=== PATIENT | female | born 1940 | race Caucasian/White ===

== ENCOUNTER 2018-10-19 10:10 | Outpatient (RCR) | payer MEDICARE, SELFPAY ==
[2018-10-19 10:46] VITALS: BP 136/67; PULSE 56; RESP 18; TEMP 36.6; BMI 22.3
--- NOTE | 2018-10-19 12:00 | HP.PCM_ITS ---
(1) Ulcer of foot Status: Chronic Current Visit: Yes Qualifiers: Laterality: right Code(s): L97.509 - Non-pressure chronic ulcer of other part of unspecified foot with unspecified severity (2) Hypertension Status: Chronic Current Visit: No Code(s): I10 - Essential (primary) hypertension (3) COPD (chronic obstructive pulmonary disease) Status: Chronic Current Visit: No Code(s): J44.9 - Chronic obstructive pulmonary disease, unspecified (4) Coronary atherosclerosis Status: Chronic Current Visit: Yes Code(s): I25.10 - Atherosclerotic heart disease of [place] coronary artery without angina pectoris (5) Cardiac arrhythmia Status: Chronic Current Visit: Yes Code(s): I49.9 - Cardiac arrhythmia, unspecified (6) GERD (gastroesophageal reflux disease) Status: Chronic Current Visit: No Code(s): K21.9 - Gastro-esophageal reflux disease without esophagitis (7) IBS (irritable bowel syndrome) Status: Chronic Current Visit: No Code(s): K58.9 - Irritable bowel syndrome without diarrhea (8) Osteoarthritis Status: Chronic Current Visit: No Code(s): M19.90 - Unspecified osteoarthritis, unspecified site (9) Pain in right leg Status: Chronic Current Visit: Yes Code(s): M79.604 - Pain in right leg (10) Neuropathy Status: Chronic Current Visit: No Code(s): G62.9 - Polyneuropathy, unspecified (11) Tobacco abuse Status: Chronic Current Visit: Yes Code(s): Z72.0 - Tobacco use (12) Tobacco abuse counseling Status: Chronic Current Visit: Yes Code(s): Z71.6 - Tobacco abuse counseling (13) Hyperlipidemia Status: Chronic Current Visit: Yes Code(s): E78.5 - Hyperlipidemia, unspecified History of Present Illness Date of Service: 10/19/18 Chief Complaint: Ulceration of the right lateral foot History of Wound: This is a 78-year-old female who presents with an ulceration of the right lateral foot. It has been present for approximately 3 to 4 weeks. Its cause is uncertain. She has been treated by her primary care physician, Dr. Paulson, in [place], [place]. The patient was initially treated with an antibiotic, the name of which is uncertain. She was subsequently switched to Cipro, which she is currently taking orally. She was also placed on Valtrex, as there was suspicion that her presenting symptoms may have been related to shingles. Patient relates that she initially noted some hard, firm painful areas on her right leg. She subsequently developed the ulceration on her right lateral foot, which occurred spontaneously, the patient denying any trauma to the area. This has been associated with purplish discoloration on the right lateral foot and involving the right fifth digit. There are also some small sc attered areas of purplish discoloration involving the right leg. The patient denies a history of thrombophlebitis. She has no history of swelling in her lower extremities. She claims to be active and ambulatory. She sleeps on a flat surface at night. A venous duplex examination has recently been performed at [facility], which was negative for deep vein thrombosis. A noninvasive arterial study was also reportedly performed, though the results are unknown. The patient is known to be a smoker. She smokes approximately 1 pack of cigarettes per day, and has done so for many years. She also has multiple medical problems, which include cardiac arrhythmia, coronary atherosclerosis, hypertension, chronic obstructive pulmonary disease, and hyperlipidemia. With respect to the ulceration on the right lateral foot, she has been using antibiotic cream topically. Past Medical History Past Medical History: Chronic Problems Ulcer of foot (Chronic) Hypertension (Chronic) COPD (chronic obstructive pulmonary disease) (Chronic) Coronary atherosclerosis (Chronic) Cardiac arrhythmia (Chronic) GERD (gastroesophageal reflux disease) (Chronic) IBS (irritable bowel syndrome) (Chronic) Osteoarthritis (Chronic) Pain in right leg (Chronic) Neuropathy (Chronic) Tobacco abuse (Chronic) Tobacco abuse counseling (Chronic) Hyperlipidemia (Chronic) Past Medical History: Patient has a history of hypertension, chronic obstructive pulmonary disease, coronary atherosclerosis, cardiac arrhythmia, gastroesophageal reflux disease, irritable bowel syndrome, osteoarthritis, and hyperlipidemia. Patient's history is negative for myocardial infarction, congestive heart failure, diabetes mellitus, cerebrovascular accident, and thyroid disease. The patient also has a history of tobacco use. The patient's medications include amlodipine 5 mg p.o. daily, chlorothiazide 5 mg p.o. twice daily, Citracal with calcium and vitamin D daily, estradiol 0.5 mg daily, metoprolol 50 mg daily, multivitamin daily, nabumetone 500 mg twice daily, oxybutynin 5 mg daily Cipro 500 mg twice daily, Zantac 150 mg twice daily. Surgical History: hysterectomy - With bilateral salpingo-oophorectomy Allergies/Adverse Reactions: Allergies No Known Allergies Allergy (Verified 10/19/18 11:36) - Family History Paternal - - Patient's father at the age of 62 with a history of melanoma. Patient's mother at the age of 42 with Hodgkin's disease Lives: Alone Smoking Status: Current every day smoker Tobacco Use: Cigarettes - 1 pack/day Alcohol: None Drugs: None Review of Systems Constitutional: Denies: Chills, Fever, Weight Change Eyes: Denies: Pain, Vision Change HEENT: Denies: Difficulty Hearing, Difficulty Swallowing, Sinus Congestion Cardiovascular: Denies: Chest Pain, Palpitations Respiratory: Denies: Cough, Shortness of Breath Gastrointestinal: Denies: Diarrhea, Nausea, Vomiting Genitourinary: Denies: Dysuria, Hematuria Endocrine: Denies: Heat/ Cold Intolerance, Polydipsia, Polyuria Hematologic/ Lymphatic: Denies: Easy Bruising, Easy Bleeding - Physical Exam Vital Signs Temp Pulse Resp BP 98 F 56 L 18 136/67 H 10/19/18 10:46 10/19/18 10:46 10/19/18 10:46 10/19/18 10:46 General: Alert, Oriented x3, Cooperative, No apparent distress, Well developed, Well nourished HEENT: Atraumatic, PERRLA, EOMI, Normocephalic Oral: Moist Mucosa Neck: Supple, No JVD, Negative Carotid Bruits, Negative Hepatojugular Reflux, No Nodes, No Nuchal Rigidity, Trachea Midline Lungs: Clear to auscultation, Normal air movement, No rhonchi, No wheeze, No rales Cardiovascular: Normal S1, Normal S2, No murmurs Abdomen: Soft, Non Tender, Non-Distended Extremities: No clubbing, No cyanosis, No edema, No Calf Tenderness, - - Ulcerations noted on the right lateral foot. Dimensions are documented elsewhere. There is no sign of infection or cellulitis. Small amount of bioburden and nonviable tissue present. The right lateral foot also demonstrates purplish discoloration, which also involves the entirety of the right fifth digit. There is no significant swelling or edema. The lateral aspect of the right foot and the right fifth digit are mildly painful. There are also several small scattered areas of purplish discoloration involving the right leg. Wound Measurements and Assessment WC - Nurse 1 - General Ulcer Measurement Start: 10/19/18 10:46 Freq: Status: Active Protocol: Activity Type Activity Date Activity User E-Sign Co-Sign Detail Recorded Client Recorded Date Recorded By Document 10/19/18 10:46 DL [id number] 10/19/18 11:15 DL 10/19/18 10:46 Wound Center Nurse 1 [Ulcer Assessment] #1 R Lat Foot -Current Size (cm) - Length 1.5 -Current Size (cm) - Width 0.5 -Current Size (cm) - Depth 0.1 -Total Square Cm 0.75 -Photo Taken Yes -Epithelialization None Present -Classification - Thickness Full Thickness without Exposed Support Structure -Exudate Amt Small -Exudate Type Serosanguineous -Wound Margin Thickened -Granulation Amt None Present (0 %) -Necrosis Amt Large (67-100%) -Necrotic Tissue Type Adherent Slough -Structure Exposed N/A -Texture (Andie-wound Skin Appearance) Localized Edema ,Scarring -Color (Andie-wound Skin Appearance) Ecchymosis, Erythema, Mottled,Rubor -Temperature (Andie-wound Skin No Abnormality Appearance) (Pt Warm) -Ulcer Cleansing Rinsed/ Irrigated with Saline -Foul Odor after Cleansing No -Anesthetic Used 5% Lidocaine Gel Musculoskeletal: No Muscle Wasting Neurological: Cranial nerves II-XII grossly intact, Neuro grossly intact Psych/Mental Status: Normal Affect, Appropriate, Alert and oriented to time, place, person, mood and affect Debridement Note Laterality: Right - Lateral foot Type of Debridement: Excisional debridement Anesthesia Used: 5% Lidocaine Gel Depth: Down to and including healthy tissue, in the subcutaneous layer Percentage of wound debrided: 100 Instrument Used: 7mm curette Tissue Removed: Bioburden and nonviable tissue Severity: Fat Layer Exposed Amount of bleeding with debridement: Mild Bleeding Controlled with: Compression and gauze Patient tolerated procedure well Assessment/Plan Active Problems Ulcer of foot (Chronic) Coronary atherosclerosis (Chronic) Cardiac arrhythmia (Chronic) Pain in right leg (Chronic) Tobacco abuse (Chronic) Tobacco abuse counseling (Chronic) Hyperlipidemia (Chronic) Assessment: This is a 78-year-old female who presents with an ulceration on the right lateral foot, which is said to have been present for approximately 3 to 4 weeks. Its etiology is uncertain. However, the purplish discoloration in the area of the ulceration, and involving the fifth digit of the right foot, are suggestive of an embolic ischemic phenomenon. The patient is known to have a long-standing history of smoking. She also relates a history of cardiac arrhythmia. It does not appear as though she has had close follow-up relative to her cardiac status. There is suspicion that there may be an embolic phenomenon responsible for her presenting symptoms, which may be cardiac in origin, or possibly related to peripheral arterial atherosclerosis. Patient has multiple other pre-existing medical problems, which have been documented above. Plan: Offloading measures are to be implemented. The patient has been provided a surgical shoe, which she is to wear on a daily basis. She is to avoid conv entional shoes which may place pressure or friction on the wound surface. The patient has been advised to stop smoking. The adverse consequences of smoking relative to cardiac and peripheral arterial disease have been explained. We are to obtain a venous duplex examination of the lower extremities, as the manifestations described by the patient may represent superficial thrombophlebitis. Given the patient's long-standing history of smoking, and suspicion as to possible atheroembolic phenomenon, we are also to obtain a lower extremity noninvasive lower extremity arterial study. An EKG will also be obtained, to further assess the patient's cardiac rhythm. She has stated a history of cardiac arrhythmia. Routine laboratory studies will also be performed, including a hemoglobin A1c, CBC, comprehensive metabolic profile, and serum prealbumin. The patient is to continue her course of Cipro until completion. Patient is to return in 1 week for reassessment. Patient weighs 138 pounds. Her height is 5 feet 6 inches tall. Her BMI is 22.3. Influenza vaccine was not administered today. Patient's weight appears to be appropriate.
[2018-10-19 14:47] LABS: Hematocrit 47.8 % (37-47); Hemoglobin 15.8 g/dL (12.0-15.0); Mean Corp Hgb Conc 33.1 g/dL (32-36); Mean Corpuscular Hgb 31.3 pg (27.0-32.0); Mean Corpuscular Volume 94.7 fL (81-99); Mean Platelet Vol. 10.6 fl (6.2-12.0); Platelet Count 235 K/mm3 (150-450); Red Blood Count 5.05 M/mm3 (4.2-5.4)
[2018-10-19 15:17] LABS: ALB/GLOB Ratio 0.8 RATIO (0.9-2.4); AST(SGOT) 23 U/L (15-37); Alanine Aminotransfer ALT/SGPT 29 U/L (13-56); Albumin, Serum 3.5 g/dL (3.2-5.0); Alkaline Phosphatase 82 U/L (45-117); Anion Gap 7 (5-15); BUN 9 mg/dL (7-18); BUN/Creat Ratio 11.4 RATIO (10-20); Calcium,Total 9.2 mg/dL (8.5-10.1); Chloride 108 mmol/L (98-107); Creatinine, Serum 0.79 mg/dL (0.55-1.02); EST Glomerular Filtration Rate 75 mL/min (>60); Est Glom Filt Rate - Afr Amer 91 mL/min (>60); Globulin 4.6 g/dL (2.2-4.2); Glucose 88 mg/dL (74-106); Potassium 3.9 mmol/L (3.5-5.1); Prealbumin 23.3 mg/dL (20.0-40.0); Protein, Total 8.1 g/dL (6.4-8.2); Sodium Level 143 mmol/L (136-145)
== END 2018-10-23 23:59 ==
LOC: WC 10:10
PROVIDERS: Family Provider Family Medicine; PCP Family Medicine; Referring Provider Surgery; Visit Provider Surgery
DX: L97.512 Non-pressure chronic ulcer of other part of right foot with fat layer exposed (principal); I25.10 Atherosclerotic heart disease of native coronary artery without angina pectoris; I10 Essential (primary) hypertension; J44.9 Chronic obstructive pulmonary disease, unspecified; K21.9 Gastro-esophageal reflux disease without esophagitis; K58.9 Irritable bowel syndrome, unspecified; M19.90 Unspecified osteoarthritis, unspecified site; G62.9 Polyneuropathy, unspecified; M79.604 Pain in right leg; E78.5 Hyperlipidemia, unspecified; F17.210 Nicotine dependence, cigarettes, uncomplicated; Z79.899 Other long term (current) drug therapy
CPT/HCPCS: 11042; 36415; 80053; 83036; 84134; 85027; 99203; G0463

== ENCOUNTER 2018-11-16 11:30 | Outpatient (RCR) | payer MEDICARE, SELFPAY ==
[2018-10-24 01:16] VITALS: BP 136/67; PULSE 56; RESP 18; TEMP 36.6
--- NOTE | 2018-10-26 08:05 | VDLE_ITS ---
Reason For Study: Open wound Rt lateral foot RIGHT LEFT CFV is compressible, spontaneous, phasic, CFV is compressible, spontaneous, phasic, competent and demonstrates normal competent, and demonstrates normal augmentation. augmentation. FV is compressible, spontaneous, phasic, FV is compressible, spontaneous, phasic, competent and demonstrates normal competent and demonstrates normal augmentation. augmentation. POP V is compressible, spontaneous, phasic, POP V is compressible, spontaneous, phasic, competent and demonstrates normal competent and demonstrates normal augmentation. augmentation. T/P Trunk is compressible. T/P Trunk is compressible. PTV is compressible. PTV is compressible. RT PerV is compressible. LT PerV is compressible. SFJ is competent and measures 0.50 x 0.58 cm. SFJ is competent and measures 0.47 x 0.49 cm. GSV proximal thigh measures 0.30 x 0.32 cm. GSV proximal thigh measures 0.24 x 0.28 cm. GSV at knee measures 0.34 x 0.35 cm. GSV at knee measures 0.43 x 0.44 cm. GSV is competent throughout. GSV is competent throughout. SSV at junction is INCOMPETENT for greater SSV at junction is competent and measures than 0.5 seconds and measures 0.32 x 0.31 cm. 0.28 x 0.32 cm. Procedure Exam performed in department. A preliminary report was called and/or faxed to . Interpretation Summary Deep veins of the lower extremities are bilaterally patent and compressible segmentally. There is no evidence of deep vein thrombosis on either side. Valvular competence appears intact within the proximal deep venous systems bilaterally. The great saphenous veins appear bilaterally patent and compressible segmentally. Sapheno-femoral junctions are bilaterally competent . Valvular competence appears to be intact segmentally within the great saphenous veins bilaterally. The right small saphenous vein is patent and incompetent. The left small saphenous vein is patent and competent. Ordering Physician: Jagjit Rosas Referring Physician: Vinod Paulson Performed By: Nanci Barriga RVT
--- NOTE | 2018-10-26 08:05 | ART_ITS ---
Reason For Study: PAD Procedure A bilateral lower extremity continuous wave Doppler with analog waveform analysis,segmental pressures,and ankle brachial indexes without exercise. Left Segmental Pressures Left brachial= 157mmHg. Left posterior tibial artery = 165mmHg. Left dorsalis pedis artery = 169mmHg. The left dorsalis pedis waveforms are triphasic. The left posterior tibial artery waveforms are triphasic. Right Segmental Pressures Right brachial= 159mmHg. Right thigh = 126mmHg. Right calf = 118mmHg. Right posterior tibial artery = 114mmHg. Right dorsalis pedis artery = 117mmHg. Right digit = 102 mmHg. The right dorsalis pedis waveforms are monophasic. The right posterior tibial artery waveforms are biphasic. Indices The right ankle brachial index by the dorsalis pedis is 0.74. The right ankle brachial index by the posterior tibial artery is 0.72. The right digital-brachial index is 0.64. The left ankle brachial index by the dorsalis pedis is 1.06. The left ankle brachial index by the posterior tibial artery is 1.04. Interpretation Summary Biphasic and monophasic Doppler waveforms are noted at ankle level on the right. Triphasic Doppler waveforms are noted at ankle level on the left. Pulse-volume recording waveform amplitudes are diminished at ankle level on the right. The resting right ankle-brachial index and digital-brachial index are mildly to moderately diminished. The resting left ankle-brachial index is normal. The left digital-brachial index was not determined. 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 Arterial flow appears relatively normal at ankle level on the left, and was not completely assessed at left digital level. Ordering Physician: Jagjit Rosas Referring Physician: Vinod Paulson Performed By: Nanci Barriga RVT
[2018-10-26 09:39] VITALS: BP 147/65; PULSE 62; RESP 18; TEMP 35.7; BMI 22.3
--- NOTE | 2018-10-26 10:28 | HP.PCM_ITS ---
(1) Ulcer of foot Status: Chronic Current Visit: Yes Qualifiers: Laterality: right Non-pressure ulcer stage: with fat layer exposed Qualified Code(s): L97.512 - Non-pressure chronic ulcer of other part of right foot with fat layer exposed Code(s): L97.509 - Non-pressure chronic ulcer of other part of unspecified foot with unspecified severity (2) Hypertension Status: Chronic Current Visit: No Code(s): I10 - Essential (primary) hypertension (3) COPD (chronic obstructive pulmonary disease) Status: Chronic Current Visit: No Code(s): J44.9 - Chronic obstructive pulmonary disease, unspecified (4) Coronary atherosclerosis Status: Chronic Current Visit: No Code(s): I25.10 - Atherosclerotic heart disease of [place] coronary artery without angina pectoris (5) Cardiac arrhythmia Status: Chronic Current Visit: No Code(s): I49.9 - Cardiac arrhythmia, unspecified (6) GERD (gastroesophageal reflux disease) Status: Chronic Current Visit: No Code(s): K21.9 - Gastro-esophageal reflux disease without esophagitis (7) IBS (irritable bowel syndrome) Status: Chronic Current Visit: No Code(s): K58.9 - Irritable bowel syndrome without diarrhea (8) Osteoarthritis Status: Chronic Current Visit: No Code(s): M19.90 - Unspecified osteoarthritis, unspecified site (9) Pain in right leg Status: Chronic Current Visit: Yes Code(s): M79.604 - Pain in right leg (10) Neuropathy Status: Chronic Current Visit: Yes Code(s): G62.9 - Polyneuropathy, unspecified (11) Tobacco abuse Status: Chronic Current Visit: Yes Code(s): Z72.0 - Tobacco use (12) Tobacco abuse counseling Status: Chronic Current Visit: Yes Code(s): Z71.6 - Tobacco abuse counseling (13) Hyperlipidemia Status: Chronic Current Visit: No Code(s): E78.5 - Hyperlipidemia, unspecified History of Present Illness Date of Service: 10/26/18 Chief Complaint: Ulceration of the right lateral foot History of Wound: This is a 78-year-old female who presented with an ulceration of the right lateral foot. It had been present for approximately 3 to 4 weeks. Its cause is uncertain. She has been treated by her primary care physician, Dr. Paulson, in [place], [place]. The patient was initially treated with an antibiotic, the name of which is uncertain. She was subsequently switched to Cipro, which she has now completed. She was also placed on Valtrex, as there was suspicion that her presenting symptoms may have been related to shingles. Patient relates that she initially noted some hard, firm painful areas on her right leg. She subsequently developed the ulceration on her right lateral foot, which occurred spontaneously, the patient denying any trauma to the area. This has been associated with purplish discoloration on the right lateral foot and involving the right fifth digit. There were also some small scattered areas of purplish discoloration involving the right leg. The patient denies a history of thrombophlebitis. She has no history of swelling in her lower extremities. She claims to be active and ambulatory. She sleeps on a flat surface at night. A venous duplex examination has recently been performed at [facility], which was negative for deep vein thrombosis. A noninvasive arterial study was also reportedly performed, though the results are unknown. The patient is known to be a smoker. She smokes approximately 1 pack of cigarettes per day, and has done so for many years. She also has multiple medical problems, which include cardiac arrhythmia, coronary atherosclerosis, hypertension, chronic obstructive pulmonary disease, and hyperlipidemia. With respect to the ulceration on the right lateral foot, she had been using antibiotic cream topically. Past Medical History Past Medical History: Chronic Problems Ulcer of foot (Chronic) Hypertension (Chronic) COPD (chronic obstructive pulmonary disease) (Chronic) Coronary atherosclerosis (Chronic) Cardiac arrhythmia (Chronic) GERD (gastroesophageal reflux disease) (Chronic) IBS (irritable bowel syndrome) (Chronic) Osteoarthritis (Chronic) Pain in right leg (Chronic) Neuropathy (Chronic) Tobacco abuse (Chronic) Tobacco abuse counseling (Chronic) Hyperlipidemia (Chronic) Surgical History: hysterectomy - With bilateral salpingo-oophorectomy Allergies/Adverse Reactions: Allergies No Known Allergies Allergy (Verified 10/19/18 11:36) - Family History Paternal - - Patient's father at the age of 62 with a history of melanoma. Patient's mother at the age of 42 with Hodgkin's disease Smoking Status: Current every day smoker Tobacco Use: Cigarettes Review of Systems Constitutional: Denies: Chills, Fever, Weight Change Eyes: Denies: Pain, Vision Change HEENT: Denies: Difficulty Hearing, Difficulty Swallowing, Sinus Congestion Cardiovascular: Denies: Chest Pain, Palpitations Respiratory: Denies: Cough, Shortness of Breath Gastrointestinal: Denies: Diarrhea, Nausea, Vomiting Genitourinary: Denies: Dysuria, Hematuria Endocrine: Denies: Heat/ Cold Intolerance, Polydipsia, Polyuria Hematologic/ Lymphatic: Denies: Easy Bruising, Easy Bleeding - Physical Exam Vital Signs Temp Pulse Resp BP 96.2 F L 62 18 147/65 H 10/26/18 09:39 10/26/18 09:39 10/26/18 09:39 10/26/18 09:39 General: Alert, Oriented x3, Cooperative, No apparent distress, Well developed, Well nourished HEENT: Atraumatic, PERRLA, EOMI, Normocephalic Oral: Moist Mucosa Neck: No JVD Lungs: Normal air movement Abdomen: Non-Distended Extremities: No clubbing, No cyanosis, No edema, No Calf Tenderness, - - The ulceration on the right lateral foot persists. It is slightly smaller in size. There is less bioburden, though a moderate amount cysts. Dimensions are documented elsewhere. There is no obvious sign of infection or cellulitis. The purple discoloration persists on the right lateral foot and right fifth digit. Wound Measurements and Assessment WC - Nurse 1 - General Ulcer Measurement Start: 10/26/18 09:39 Freq: Status: Active Protocol: Activity Type Activity Date Activity User E-Sign Co-Sign Detail Recorded Client Recorded Date Recorded By Document 10/26/18 09:39 [id number] 10/26/18 09:46 MEREDITH 10/26/18 09:39 Wound Center Nurse 1 [Ulcer Assessment] #1 R Lat Foot -Combined with other wound No -Current Size (cm) - Length 2.0 -Current Size (cm) - Width 0.8 -Current Size (cm) - Depth 0.1 -Total Square Cm 1.60 -Photo Taken No -Epithelialization None Present -Tunneling No -Undermining/Tunneling No -Circular Undermining No -Exudate Amt Small -Exudate Type Serosanguineous -Wound Margin Flat & Intact -Granulation Amt None Present (0 %) -Slough/Fibrin Yes -Necrosis Amt Medium (34-66%) -Necrotic Tissue Type Adherent Slough -Structure Exposed N/A -Texture (Andie-wound Skin Appearance) Assessed -Moisture (Andie-wound Skin Appearance Assessed,Dry/ ) Scaly -Color (Andie-wound Skin Appearance) Assessed, Cyanosis, Ecchymosis -Temperature (Andie-wound Skin No Abnormality Appearance) (Pt Warm) -Tenderness on Palpation (Andie-wound No Skin Appearance) -Ulcer Cleansing Rinsed/ Irrigated with Saline -Foul Odor after Cleansing No -Anesthetic Used 5% Lidocaine Gel [Edema Assessment] -Lower Limb Edema Present No Neurological: Cranial nerves II-XII grossly intact, Neuro grossly intact Psych/Mental Status: Normal Affect, Appropriate, Alert and oriented to time, place, person, mood and affect Debridement Note Laterality: Right - Lateral foot Type of Debridement: Excisional debridement Anesthesia Used: 5% Lidocaine Gel Depth: Down to and including healthy tissue, in the subcutaneous layer Percentage of wound debrided: 100 Instrument Used: 3mm curette Tissue Removed: Bioburden and nonviable tissue Severity: Fat Layer Exposed Amount of bleeding with debridement: Mild Bleeding Controlled with: Compression and gauze Patient tolerated procedure well Assessment/Plan Active Problems Ulcer of foot (Chronic) Pain in right leg (Chronic) Neuropathy (Chronic) Tobacco abuse (Chronic) Tobacco abuse counseling (Chronic) Assessment: This is a 78-year-old female who presented with an ulceration on the right lateral foot, which was said to have been present for approximately 3 to 4 weeks. Its etiology is uncertain. However, the purplish discoloration in the area of the ulceration, and involving the fifth digit of the right foot, are suggestive of an embolic or ischemic phenomenon. The patient is known to have a long-standing history of smoking. She also relates a history of cardiac arrhythmia. It does not appear as though she has had close follow-up relative to her cardiac status. There is suspicion that there may be an embolic phenomenon responsible for her presenting symptoms, which may be cardiac in origin, or possibly related to peripheral arterial atherosclerosis. Alternatively, the changes in the right foot may be due to [place] arterial ischemia. Patient has multiple other pre-existing medical problems, which have been documented above. Patient has undergone a battery of diagnostic testing. Laboratory results are as follows: Glucose 88, BUN 9, creatinine 0.79, total protein 8.1, albumin 3.5, calcium 9.2, AST 23, alkaline phosphatase 82, ALT 29, sodium 143, potassium 3.9, chloride 108, serum prealbumin 23.3, white blood count 10.0, hemoglobin 15.8, hematocrit 47.8, platelets 235,000, hemoglobin A1c 6.0. EKG is pending. Venous duplex examination is pending. A noninvasive lower extremity arterial study reveals a normal ankle-brachial index on the left, with triphasic flow at ankle level on the left. On the right, biphasic and monophasic Doppler signals are noted at ankle level. 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 Furthermore, the patient now relates that she has typically experienced pain in her right lower extremity with walking short distances, which is highly suggestive of intermittent claudication. Plan: Offloading measures are to be continued. The patient has been provided a surgical shoe, which she is to wear on a daily basis. She is to avoid conventional shoes which may place pressure or friction on the wound surface. The patient has been advised to stop smoking. The adverse consequences of smoking relative to cardiac and peripheral arterial disease have been explained. We will await the results of the patient's venous duplex examination and her EKG. However, her noninvasive lower extremity arterial study reveals evidence of arterial inflow disease to the right lower extremity. As result, we are to seek consultation with a vascular surgeon as soon as possible. It may well be that right lower extremity revascularization may assist in the healing process. An EKG will also be awaited, to further assess the patient's cardiac rhythm. She has stated a history of cardiac arrhythmia. The patient has been advised to collaborate with her primary care physician in terms of smoking cessation options. Patient is to return in 1 week for reassessment. Patient weighs 138 pounds. Her height is 5 feet 6 inches tall. Her BMI is 22.3. Influenza vaccine was not administered today. Patient's weight appears to be appropriate.
[2018-11-02 11:00] VITALS: BP 131/68; PULSE 67; RESP 18; TEMP 37; BMI 22.3
--- NOTE | 2018-11-02 11:59 | PCM.WC.HP ---
(1) Ulcer of foot Status: Chronic Current Visit: Yes Qualifiers: Laterality: right Non-pressure ulcer stage: with fat layer exposed Qualified Code(s): L97.512 - Non-pressure chronic ulcer of other part of right foot with fat layer exposed Code(s): L97.509 - Non-pressure chronic ulcer of other part of unspecified foot with unspecified severity (2) Hypertension Status: Chronic Current Visit: No Code(s): I10 - Essential (primary) hypertension (3) COPD (chronic obstructive pulmonary disease) Status: Chronic Current Visit: No Code(s): J44.9 - Chronic obstructive pulmonary disease, unspecified (4) Coronary atherosclerosis Status: Chronic Current Visit: No Code(s): I25.10 - Atherosclerotic heart disease of [place] coronary artery without angina pectoris (5) Cardiac arrhythmia Status: Chronic Current Visit: No Code(s): I49.9 - Cardiac arrhythmia, unspecified (6) GERD (gastroesophageal reflux disease) Status: Chronic Current Visit: No Code(s): K21.9 - Gastro-esophageal reflux disease without esophagitis (7) IBS (irritable bowel syndrome) Status: Chronic Current Visit: No Code(s): K58.9 - Irritable bowel syndrome without diarrhea (8) Osteoarthritis Status: Chronic Current Visit: No Code(s): M19.90 - Unspecified osteoarthritis, unspecified site (9) Pain in right leg Status: Chronic Current Visit: Yes Code(s): M79.604 - Pain in right leg (10) Neuropathy Status: Chronic Current Visit: Yes Code(s): G62.9 - Polyneuropathy, unspecified (11) Tobacco abuse Status: Chronic Current Visit: Yes Code(s): Z72.0 - Tobacco use (12) Tobacco abuse counseling Status: Chronic Current Visit: Yes Code(s): Z71.6 - Tobacco abuse counseling (13) Hyperlipidemia Status: Chronic Current Visit: No Code(s): E78.5 - Hyperlipidemia, unspecified History of Present Illness Date of Service: 11/02/18 Chief Complaint: Ulceration of the right lateral foot History of Wound: This is a 78-year-old female who presented with an ulceration of the right lateral foot. It had been present for approximately 3 to 4 weeks. Its cause is uncertain. She has been treated by her primary care physician, Dr. Paulson, in [place], [place]. The patient was initially treated with an antibiotic, the name of which is uncertain. She was subsequently switched to Cipro, which she has now completed. She was also placed on Valtrex, as there was suspicion that her presenting symptoms may have been related to shingles. Patient relates that she initially noted some hard, firm painful areas on her right leg. She subsequently developed the ulceration on her right lateral foot, which occurred spontaneously, the patient denying any trauma to the area. This has been associated with purplish discoloration on the right lateral foot and involving the right fifth digit. There were also some small scattered areas of purplish discoloration involving the right leg. The patient denies a history of thrombophlebitis. She has no history of swelling in her lower extremities. She claims to be active and ambulatory. She sleeps on a flat surface at night. A venous duplex examination has recently been performed at [facility], which was negative for deep vein thrombosis. A noninvasive arterial study was also reportedly performed, though the results are unknown. The patient is known to be a smoker. She smokes approximately 1 pack of cigarettes per day, and has done so for many years. She also has multiple medical problems, which include cardiac arrhythmia, coronary atherosclerosis, hypertension, chronic obstructive pulmonary disease, and hyperlipidemia. With respect to the ulceration on the right lateral foot, she had been using antibiotic cream topically. Past Medical History Past Medical History: Chronic Problems Ulcer of foot (Chronic) Hypertension (Chronic) COPD (chronic obstructive pulmonary disease) (Chronic) Coronary atherosclerosis (Chronic) Cardiac arrhythmia (Chronic) GERD (gastroesophageal reflux disease) (Chronic) IBS (irritable bowel syndrome) (Chronic) Osteoarthritis (Chronic) Pain in right leg (Chronic) Neuropathy (Chronic) Tobacco abuse (Chronic) Tobacco abuse counseling (Chronic) Hyperlipidemia (Chronic) Surgical History: hysterectomy - With bilateral salpingo-oophorectomy Allergies/Adverse Reactions: Allergies No Known Allergies Allergy (Verified 10/19/18 11:36) - Family History Paternal - - Patient's father at the age of 62 with a history of melanoma. Patient's mother at the age of 42 with Hodgkin's disease Smoking Status: Current every day smoker Tobacco Use: Cigarettes Review of Systems Constitutional: Denies: Chills, Fever, Weight Change Eyes: Denies: Pain, Vision Change HEENT: Denies: Difficulty Hearing, Difficulty Swallowing, Sinus Congestion Cardiovascular: Denies: Chest Pain, Palpitations Respiratory: Denies: Cough, Shortness of Breath Gastrointestinal: Denies: Diarrhea, Nausea, Vomiting Genitourinary: Denies: Dysuria, Hematuria Endocrine: Denies: Heat/ Cold Intolerance, Polydipsia, Polyuria Hematologic/ Lymphatic: Denies: Easy Bruising, Easy Bleeding - Physical Exam Vital Signs Temp Pulse Resp BP 98.6 F 67 18 131/68 H 11/02/18 11:00 11/02/18 11:00 11/02/18 11:00 11/02/18 11:00 General: Alert, Oriented x3, Cooperative, No apparent distress, Well developed, Well nourished HEENT: Atraumatic, PERRLA, EOMI, Normocephalic Oral: Moist Mucosa Neck: No JVD Lungs: Normal air movement Abdomen: Non-Distended Extremities: No clubbing, No cyanosis, No edema, No Calf Tenderness, - - The ulceration on the right lateral foot persists. It is little changed in size or appearance. Dimensions are documented elsewhere. There is no obvious sign of infection or cellulitis. There is a moderate amount of bioburden and nonviable tissue present. There are apparent ischemic changes surrounding the ulceration on the right lateral foot, as well as involving the right fifth toe, and scattered areas elsewhere on the foot and right lateral thigh. Wound Measurements and Assessment WC - Nurse 1 - General Ulcer Measurement Start: 10/26/18 09:39 Freq: Status: Active Protocol: Activity Type Activity Date Activity User E-Sign Co-Sign Detail Recorded Client Recorded Date Recorded By Document 11/02/18 11:00 [id number] 11/02/18 11:10 11/02/18 11:00 Wound Center Nurse 1 [Ulcer Assessment] #1 R Lat Foot -Combined with other wound No -Current Size (cm) - Length 1.9 -Current Size (cm) - Width 0.6 -Current Size (cm) - Depth 0.2 -Total Square Cm 1.14 -Photo Taken No -Epithelialization None Present -Tunneling No -Undermining/Tunneling No -Circular Undermining No -Exudate Amt Small -Exudate Type Serosanguineous -Wound Margin Flat & Intact -Granulation Amt None Present (0 %) -Slough/Fibrin Yes -Necrosis Amt Large (67-100%) -Necrotic Tissue Type Adherent Slough -Structure Exposed N/A -Texture (Andie-wound Skin Appearance) Assessed, Localized Edema -Moisture (Andie-wound Skin Appearance Assessed,Dry/ ) Scaly -Color (Andie-wound Skin Appearance) Assessed, Cyanosis,Rubor -Temperature (Andie-wound Skin No Abnormality Appearance) (Pt Warm) -Tenderness on Palpation (Andie-wound No Skin Appearance) -Ulcer Cleansing Rinsed/ Irrigated with Saline -Foul Odor after Cleansing No -Anesthetic Used 5% Lidocaine Gel [Edema Assessment] -Lower Limb Edema Present Yes -Right Calf (cm) 29.9 -Right Ankle (cm) 19.3 - Nurse 2 - General Ulcer CM Notes Start: 10/26/18 09:39 Freq: Status: Active Protocol: Activity Type Activity Date Activity User E-Sign Co-Sign Detail Recorded Client Recorded Date Recorded By Document 11/02/18 11:48 MW [id number] 11/02/18 11:55 MW 11/02/18 11:48 Wound Center Nurse 2 [Procedure/Treatment] #1 R Lat Foot -Time 11:48 -Correct Patient Yes -Correct Side, Site, Position Yes -Correct Procedure Yes -Procedure Performed Yes -Type of Procedure Debridement -Clinical Debridement Subcutaneous -Post Debridement Size (cm) - Length 2.3 -Post Debridement Size (cm) - Width 0.6 -Post Debridement Size (cm) - Depth 0.2 -Total Square Cm 1.38 -Wound/Ulcer Outcome Not Healed -Ulcer Cleansing Rinsed/ Irrigated with Saline -Foul Odor after Cleansing No -Bioengineered Tissue No -Bleeding Controlled with Pressure -Offloading No -Treatment Response Procedure Tolerated Well [See Physician Procedure note for Specifics] Pain Scale: 0-10 Numeric [Pain] -Is Patient Pain Free? Yes Musculoskeletal: No Muscle Wasting Neurological: Cranial nerves II-XII grossly intact, Neuro grossly intact Psych/Mental Status: Normal Affect, Appropriate, Alert and oriented to time, place, person, mood and affect Debridement Note Post-Debridement Measurements/Treatment - Nurse 2 - General Ulcer CM Notes Start: 10/26/18 09:39 Freq: Status: Active Protocol: Activity Type Activity Date Activity User E-Sign Co-Sign Detail Recorded Client Recorded Date Recorded By Document 11/02/18 11:48 MW [id number] 11/02/18 11:55 MW 11/02/18 11:48 Wound Center Nurse 2 #1 R Lat Foot -Time 11:48 -Correct Patient Yes -Correct Side, Site, Position Yes -Correct Procedure Yes -Procedure Performed Yes -Type of Procedure Debridement -Clinical Debridement Subcutaneous -Post Debridement Size (cm) - Length 2.3 -Post Debridement Size (cm) - Width 0.6 -Post Debridement Size (cm) - Depth 0.2 -Total Square Cm 1.38 -Wound/Ulcer Outcome Not Healed -Ulcer Cleansing Rinsed/ Irrigated with Saline -Foul Odor after Cleansing No -Bioengineered Tissue No -Bleeding Controlled with Pressure -Offloading No -Treatment Response Procedure Tolerated Well Pain Scale: 0-10 Numeric Is Patient Pain Free? Yes Laterality: Right - Lateral foot Type of Debridement: Excisional debridement Anesthesia Used: 5% Lidocaine Gel Depth: Down to and including healthy tissue, in the subcutaneous layer Percentage of wound debrided: 100 Instrument Used: 3mm curette Tissue Removed: Bioburden and nonviable tissue Severity: Fat Layer Exposed Amount of bleeding with debridement: Mild Bleeding Controlled with: Compression and gauze Patient tolerated procedure well Assessment/Plan Active Problems Ulcer of foot (Chronic) Pain in right leg (Chronic) Neuropathy (Chronic) Tobacco abuse (Chronic) Tobacco abuse counseling (Chronic) Assessment: This is a 78-year-old female who presented with an ulceration on the right lateral foot, which was said to have been present for approximately 3 to 4 weeks. Its etiology is uncertain. However, the purplish discoloration in the area of the ulceration, and involving the fifth digit of the right foot, are suggestive of an embolic or ischemic phenomenon. The patient is known to have a long-standing history of smoking. She also relates a history of cardiac arrhythmia. It does not appear as though she has had close follow-up relative to her cardiac status. There is suspicion that there may be an embolic phenomenon responsible for her presenting symptoms, which may be cardiac in origin, or possibly related to peripheral arterial atherosclerosis. Alternatively, the changes in the right foot may be due to [place] arterial insufficiency/ischemia. Patient has multiple other pre-existing medical problems, which have been documented above. Patient has undergone a battery of diagnostic testing. Laboratory results are as follows: Glucose 88, BUN 9, creatinine 0.79, total protein 8.1, albumin 3.5, calcium 9.2, AST 23, alkaline phosphatase 82, ALT 29, sodium 143, potassium 3.9, chloride 108, serum prealbumin 23.3, white blood count 10.0, hemoglobin 15.8, hematocrit 47.8, platelets 235,000, hemoglobin A1c 6.0. EKG is pending. A noninvasive lower extremity arterial study reveals a normal ankle-brachial index on the left, with triphasic flow at ankle level on the left. On the right, biphasic and monophasic Doppler signals are noted at ankle level. 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 Furthermore, the patient relates that she has typically experiences pain in her right lower extremity with walking short distances, which is highly suggestive of intermittent claudication. 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 Plan: Offloading measures are to be continued. The patient has been provided a surgical shoe, which she is to wear on a daily basis. She is to avoid conventional shoes which may place pressure or friction on the wound surface. The patient has been advised to stop smoking. The adverse consequences of smoking relative to cardiac and peripheral arterial disease have been explained. We will await the results of the patient's EKG. However, her noninvasive lower extremity arterial study reveals evidence of arterial inflow disease to the right lower extremity. As result, we are to seek consultation with a vascular surgeon as soon as possible. It may well be that right lower extremity revascularization may assist in the healing process. An EKG will also be awaited, to further assess the patient's cardiac rhythm. She has stated a history of cardiac arrhythmia. The patient has been advised to collaborate with her primary care physician in terms of smoking cessation options. We are to continue the use of collagenase Santyl topically on a daily basis. Offloading measures will also be continued. Patient is to return in 1 week for reassessment. Patient weighs 138 pounds. Her height is 5 feet 6 inches tall. Her BMI is 22.3. Influenza vaccine was not administered today. Patient's weight appears to be appropriate.
--- NOTE | 2018-11-02 12:16 | EKG12_ITS ---
Test Reason : THROMBOEMBOLISM Blood Pressure : / mmHG Vent. Rate : 060 BPM Atrial Rate : 060 BPM P-R Int : 144 ms QRS Dur : 118 ms QT Int : 438 ms P-R-T Axes : 062 -53 078 degrees QTc Int : 438 ms Sinus rhythm with Premature supraventricular complexes Left axis deviation Septal infarct , age undetermined Abnormal ECG Confirmed by FLOR GRIFFITH ([id number]), science editor PHONG HENRY ([id number]) on 11/08/2018 2:28:27 PM Referred By: Jagjit Rosas Confirmed By:FLOR GRIFFITH
[2018-11-10 11:17] VITALS: BP 156/74; PULSE 58; RESP 18; TEMP 36.3; BMI 22.3
--- NOTE | 2018-11-10 11:38 | PCM.WC.PN ---
(1) Neuropathy Status: Chronic Current Visit: Yes Code(s): G62.9 - Polyneuropathy, unspecified (2) Pain in right leg Status: Chronic Current Visit: Yes Code(s): M79.604 - Pain in right leg (3) Ulcer of foot Status: Chronic Current Visit: Yes Qualifiers: Laterality: right Non-pressure ulcer stage: with fat layer exposed Qualified Code(s): L97.512 - Non-pressure chronic ulcer of other part of right foot with fat layer exposed Code(s): L97.509 - Non-pressure chronic ulcer of other part of unspecified foot with unspecified severity Type of Wound Date of Service: 11/10/18 Chief Complaint: Ulceration of the right lateral foot History of Wound: This is a 78-year-old female who presented with an ulceration of the right lateral foot. It had been present for approximately 3 to 4 weeks. Its cause is uncertain. She has been treated by her primary care physician, Dr. Paulson, in [place], [place]. The patient was initially treated with an antibiotic, the name of which is uncertain. She was subsequently switched to Cipro, which she has now completed. She was also placed on Valtrex, as there was suspicion that her presenting symptoms may have been related to shingles. Patient relates that she initially noted some hard, firm painful areas on her right leg. She subsequently developed the ulceration on her right lateral foot, which occurred spontaneously, the patient denying any trauma to the area. This has been associated with purplish discoloration on the right lateral foot and involving the right fifth digit. There were also some small scattered areas of purplish discoloration involving the right leg. The patient denies a history of thrombophlebitis. She has no history of swelling in her lower extremities. She claims to be active and ambulatory. She sleeps on a flat surface at night. A venous duplex examination has recently been performed at [facility], which was negative for deep vein thrombosis. A noninvasive arterial study was also reportedly performed, though the results are unknown. The patient is known to be a smoker. She smokes approximately 1 pack of cigarettes per day, and has done so for many years. She also has multiple medical problems, which include cardiac arrhythmia, coronary atherosclerosis, hypertension, chronic obstructive pulmonary disease, and hyperlipidemia. With respect to the ulceration on the right lateral foot, she had been using antibiotic cream topically. Progress of Wound: Courtesy Visit for Dr. Rosas. Being managed for a right foot ulcer. Had a visit with Dr. Brown ( Vacular Surgery ) today. No new concerns at this time. - Physical Exam Vital Signs Temp Pulse Resp BP 97.3 F L 58 L 18 156/74 H 11/10/18 11:17 11/10/18 11:17 11/10/18 11:17 11/10/18 11:17 General: Alert, Oriented x3, Cooperative, No apparent distress HEENT: Atraumatic, Normocephalic Oral: Moist Mucosa Neck: Supple Lungs: Normal air movement Extremities: No cyanosis Skin: Ulcer/ Wound Wound Measurements and Assessment WC - Nurse 1 - General Ulcer Measurement Start: 10/26/18 09:39 Freq: Status: Active Protocol: Activity Type Activity Date Activity User E-Sign Co-Sign Detail Recorded Client Recorded Date Recorded By Document 11/10/18 11:17 RB [id number] 11/10/18 11:21 RB 11/10/18 11:17 Wound Center Nurse 1 [Ulcer Assessment] #1 R Lat Foot -Combined with other wound No -Current Size (cm) - Length 2.5 -Current Size (cm) - Width 1 -Current Size (cm) - Depth 0.1 -Total Square Cm 2.5 -Tunneling No -Undermining/Tunneling No -Circular Undermining No -Exudate Amt Small -Exudate Type Serosanguineous -Wound Margin Flat & Intact -Granulation Amt Medium (34-66%) -Granulation Quality [place] -Slough/Fibrin Yes -Necrosis Amt Small (1-33%) -Necrotic Tissue Type Adherent Slough -Structure Exposed N/A -Texture (Andie-wound Skin Appearance) Assessed -Moisture (Andie-wound Skin Appearance Maceration ) -Color (Andie-wound Skin Appearance) Assessed -Temperature (Andie-wound Skin No Abnormality Appearance) (Pt Warm) -Tenderness on Palpation (Andie-wound No Skin Appearance) -Ulcer Cleansing Wound Cleanser -Foul Odor after Cleansing No -Anesthetic Used 5% Lidocaine Gel WC - Nurse 2 - General Ulcer CM Notes Start: 10/26/18 09:39 Freq: Status: Active Protocol: Activity Type Activity Date Activity User E-Sign Co-Sign Detail Recorded Client Recorded Date Recorded By Document 11/10/18 11:34 MW [id number] 11/10/18 11:37 MW 11/10/18 11:34 Wound Center Nurse 2 [Procedure/Treatment] -Time 11:35 -Correct Patient Yes -Correct Side, Site, Position Yes -Correct Procedure Yes -Procedure Performed Yes -Type of Procedure Debridement -Clinical Debridement Subcutaneous -Post Debridement Size (cm) - Length 2.5 -Post Debridement Size (cm) - Width 1.4 -Post Debridement Size (cm) - Depth 0.2 -Total Square Cm 3.50 -Wound/Ulcer Outcome Not Healed -Ulcer Cleansing Rinsed/ Irrigated with Saline -Foul Odor after Cleansing No -Bioengineered Tissue No -Bleeding Controlled with Pressure -Offloading No -Treatment Response Procedure Tolerated Well [See Physician Procedure note for Specifics] Pain Scale: 0-10 Numeric [Pain] -Is Patient Pain Free? Yes Neurological: Cranial nerves II-XII grossly intact Psych/Mental Status: Normal Affect Debridement Note Post-Debridement Measurements/Treatment WC - Nurse 2 - General Ulcer CM Notes Start: 10/26/18 09:39 Freq: Status: Active Protocol: Activity Type Activity Date Activity User E-Sign Co-Sign Detail Recorded Client Recorded Date Recorded By Document 11/02/18 11:48 MW [id number] 11/02/18 11:55 MW Document 11/10/18 11:34 MW [id number] 11/10/18 11:37 MW 11/02/18 11/10/18 11:48 11:34 Wound Center Nurse 2 #1 R Lat Foot -Time 11:48 11:35 -Correct Patient Yes Yes -Correct Side, Site, Position Yes Yes -Correct Procedure Yes Yes -Procedure Performed Yes Yes -Type of Procedure Debridement Debridement -Clinical Debridement Subcutaneous Subcutaneous -Post Debridement Size (cm) - Length 2.3 2.5 -Post Debridement Size (cm) - Width 0.6 1.4 -Post Debridement Size (cm) - Depth 0.2 0.2 -Total Square Cm 1.38 3.50 -Wound/Ulcer Outcome Not Healed Not Healed -Ulcer Cleansing Rinsed/ Rinsed/ Irrigated with Irrigated with Saline Saline -Foul Odor after Cleansing No No -Bioengineered Tissue No No -Bleeding Controlled with Pressure Pressure -Offloading No No -Treatment Response Procedure Procedure Tolerated Well Tolerated Well Pain Scale: 0-10 Numeric Is Patient Pain Free? Yes Yes Wound debrided: Right Foot Type of Debridement: Excisional debridement Anesthesia Used: 4% Lidocaine Solution Depth: Down to and including healthy tissue, in the subcutaneous layer Percentage of wound debrided: 100 Instrument Used: 3mm curette Tissue Removed: Slough and devitalized tissue Severity: Fat Layer Exposed Amount of bleeding with debridement: Mild Bleeding Controlled with: Pressure Patient tolerated procedure well Assessment/Plan Active Problems Ulcer of foot (Chronic) Pain in right leg (Chronic) Neuropathy (Chronic) Tobacco abuse (Chronic) Tobacco abuse counseling (Chronic) Assessment: Right foot Ulcer. Right Leg Pain. Tobacco abuse. Peripheral Arterial Disease. Plan: Debridement done as documented above, procedure was well tolerated. Good granulation tissue. Switch to fibrocol with adpatic daily. Continue off loading with surgical shoe. Increased protein intake and smoking cessation recommended. Contine follow up with Vascular Surgery ( Dr. Brown ). Her questions were answered and she was adviced to call with any further questions or concerns. Follow up in [address] Rosas.
[2018-11-16 11:24] VITALS: BP 137/71; PULSE 64; RESP 16; TEMP 36.5; BMI 22.3
--- NOTE | 2018-11-16 12:42 | HP.PCM_ITS ---
(1) Ulcer of foot Status: Chronic Current Visit: Yes Qualifiers: Laterality: right Non-pressure ulcer stage: with fat layer exposed Qualified Code(s): L97.512 - Non-pressure chronic ulcer of other part of right foot with fat layer exposed Code(s): L97.509 - Non-pressure chronic ulcer of other part of unspecified foot with unspecified severity (2) Hypertension Status: Chronic Current Visit: No Code(s): I10 - Essential (primary) hypertension (3) COPD (chronic obstructive pulmonary disease) Status: Chronic Current Visit: No Code(s): J44.9 - Chronic obstructive pulmonary disease, unspecified (4) Coronary atherosclerosis Status: Chronic Current Visit: No Code(s): I25.10 - Atherosclerotic heart disease of [place] coronary artery without angina pectoris (5) Cardiac arrhythmia Status: Chronic Current Visit: No Code(s): I49.9 - Cardiac arrhythmia, unspecified (6) GERD (gastroesophageal reflux disease) Status: Chronic Current Visit: No Code(s): K21.9 - Gastro-esophageal reflux disease without esophagitis (7) IBS (irritable bowel syndrome) Status: Chronic Current Visit: No Code(s): K58.9 - Irritable bowel syndrome without diarrhea (8) Osteoarthritis Status: Chronic Current Visit: No Code(s): M19.90 - Unspecified osteoarthritis, unspecified site (9) Pain in right leg Status: Chronic Current Visit: Yes Code(s): M79.604 - Pain in right leg (10) Neuropathy Status: Chronic Current Visit: Yes Code(s): G62.9 - Polyneuropathy, unspecified (11) Tobacco abuse Status: Chronic Current Visit: Yes Code(s): Z72.0 - Tobacco use (12) Tobacco abuse counseling Status: Chronic Current Visit: Yes Code(s): Z71.6 - Tobacco abuse counseling (13) Hyperlipidemia Status: Chronic Current Visit: No Code(s): E78.5 - Hyperlipidemia, unspecified History of Present Illness Date of Service: 11/16/18 Chief Complaint: Ulceration of the right lateral foot History of Wound: This is a 78-year-old female who presented with an ulceration of the right lateral foot. It had been present for approximately 3 to 4 weeks. Its cause is uncertain. She had been treated by her primary care physician, Dr. Paulson, in [place], [place]. The patient was initially treated with an antibiotic, the name of which is uncertain. She was subsequently switched to Cipro, which she has now completed. She was also placed on Valtrex, as there was suspicion that her presenting symptoms may have been related to shingles. Patient relates that she initially noted some hard, firm painful areas on her right leg. She subsequently developed the ulceration on her right lateral foot, which occurred spontaneously, the patient denying any trauma to the area. This has been associated with purplish discoloration on the right lateral foot and involving the right fifth digit. There were also some small scattered areas of purplish discoloration involving the right leg. The patient denies a history of thrombophlebitis. She has no history of swelling in her lower extremities. She claims to be active and ambulatory. She sleeps on a flat surface at night. A venous duplex examination has recently been performed at [facility], which was negative for deep vein thrombosis. A noninvasive arterial study was also reportedly performed, though the results are unknown. The patient is known to be a smoker. She smokes approximately 1 pack of cigarettes per day, and has done so for many years. She also has multiple medical problems, which include cardiac arrhythmia, coronary atherosclerosis, hypertension, chronic obstructive pulmonary disease, and hyperlipidemia. With respect to the ulceration on the right lateral foot, she had been using antibiotic cream topically. Past Medical History Past Medical History: Chronic Problems Ulcer of foot (Chronic) Hypertension (Chronic) COPD (chronic obstructive pulmonary disease) (Chronic) Coronary atherosclerosis (Chronic) Cardiac arrhythmia (Chronic) GERD (gastroesophageal reflux disease) (Chronic) IBS (irritable bowel syndrome) (Chronic) Osteoarthritis (Chronic) Pain in right leg (Chronic) Neuropathy (Chronic) Tobacco abuse (Chronic) Tobacco abuse counseling (Chronic) Hyperlipidemia (Chronic) Surgical History: hysterectomy - With bilateral salpingo-oophorectomy Allergies/Adverse Reactions: Allergies No Known Allergies Allergy (Verified 10/19/18 11:36) - Family History Paternal - - Patient's father at the age of 62 with a history of melanoma. Patient's mother at the age of 42 with Hodgkin's disease Smoking Status: Current every day smoker Tobacco Use: Cigarettes Review of Systems Constitutional: Denies: Chills, Fever, Weight Change Eyes: Denies: Pain, Vision Change HEENT: Denies: Difficulty Hearing, Difficulty Swallowing, Sinus Congestion Cardiovascular: Denies: Chest Pain, Palpitations Respiratory: Denies: Cough, Shortness of Breath Gastrointestinal: Denies: Diarrhea, Nausea, Vomiting Genitourinary: Denies: Dysuria, Hematuria Endocrine: Denies: Heat/ Cold Intolerance, Polydipsia, Polyuria Hematologic/ Lymphatic: Denies: Easy Bruising, Easy Bleeding - Physical Exam Vital Signs Temp Pulse Resp BP 97.7 F L 64 16 137/71 H 11/16/18 11:24 11/16/18 11:24 11/16/18 11:24 11/16/18 11:24 General: Alert, Oriented x3, Cooperative, No apparent distress, Well developed, Well nourished HEENT: Atraumatic, PERRLA, EOMI, Normocephalic Oral: Moist Mucosa Neck: No JVD Lungs: Normal air movement Abdomen: Non-Distended Extremities: No clubbing, No cyanosis, No edema, No Calf Tenderness, - - The ulceration on the right lateral foot persists. It is generally clean and healthy in appearance. There is only a mild amount of bioburden and nonviable tissue. Dimensions are documented elsewhere. There is no obvious sign of infection or cellulitis. Apparent ischemic changes persist in scattered locations about the right foot and the right fifth toe. Wound Measurements and Assessment WC - Nurse 1 - General Ulcer Measurement Start: 10/26/18 09:39 Freq: Status: Active Protocol: Activity Type Activity Date Activity User E-Sign Co-Sign Detail Recorded Client Recorded Date Recorded By Document 11/16/18 11:24 [facility] [id number] 11/16/18 11:29 [facility] 11/16/18 11:24 Wound Center Nurse 1 [Ulcer Assessment] #1 R Lat Foot -Combined with other wound No -Current Size (cm) - Length 2.3 -Current Size (cm) - Width 0.9 -Current Size (cm) - Depth 0.3 -Total Square Cm 2.07 -Photo Taken No -Epithelialization None Present -Tunneling No -Undermining/Tunneling No -Circular Undermining No -Exudate Amt Small -Exudate Type Serous -Wound Margin Distinct, Outline Attached -Granulation Amt Small (1-33%) -Granulation Quality Red -Slough/Fibrin Yes -Necrosis Amt Medium (34-66%) -Necrotic Tissue Type Adherent Slough -Texture (Andie-wound Skin Appearance) Assessed, Localized Edema -Moisture (Andie-wound Skin Appearance Assessed,Dry/ ) Scaly -Color (Andie-wound Skin Appearance) Assessed, Erythema -Temperature (Andie-wound Skin No Abnormality Appearance) (Pt Warm) -Tenderness on Palpation (Andie-wound No Skin Appearance) -Ulcer Cleansing Rinsed/ Irrigated with Saline -Foul Odor after Cleansing No -Anesthetic Used 5% Lidocaine Gel Neurological: Cranial nerves II-XII grossly intact, Neuro grossly intact Psych/Mental Status: Normal Affect, Appropriate, Alert and oriented to time, place, person, mood and affect Debridement Note Post-Debridement Measurements/Treatment WC - Nurse 2 - General Ulcer CM Notes Start: 10/26/18 09:39 Freq: Status: Active Protocol: Activity Type Activity Date Activity User E-Sign Co-Sign Detail Recorded Client Recorded Date Recorded By Document 11/02/18 11:48 MW [id number] 11/02/18 11:55 MW Document 11/10/18 11:34 MW [id number] 11/10/18 11:37 MW 11/02/18 11/10/18 11:48 11:34 Wound Center Nurse 2 #1 R Lat Foot -Time 11:48 11:35 -Correct Patient Yes Yes -Correct Side, Site, Position Yes Yes -Correct Procedure Yes Yes -Procedure Performed Yes Yes -Type of Procedure Debridement Debridement -Clinical Debridement Subcutaneous Subcutaneous -Post Debridement Size (cm) - Length 2.3 2.5 -Post Debridement Size (cm) - Width 0.6 1.4 -Post Debridement Size (cm) - Depth 0.2 0.2 -Total Square Cm 1.38 3.50 -Wound/Ulcer Outcome Not Healed Not Healed -Ulcer Cleansing Rinsed/ Rinsed/ Irrigated with Irrigated with Saline Saline -Foul Odor after Cleansing No No -Bioengineered Tissue No No -Bleeding Controlled with Pressure Pressure -Offloading No No -Treatment Response Procedure Procedure Tolerated Well Tolerated Well Pain Scale: 0-10 Numeric Is Patient Pain Free? Yes Yes Laterality: Right - Lateral foot Type of Debridement: Excisional debridement Anesthesia Used: 5% Lidocaine Gel Depth: Down to and including healthy tissue, in the subcutaneous layer Percentage of wound debrided: 100 Instrument Used: 7mm curette Tissue Removed: Bioburden and nonviable tissue Severity: Fat Layer Exposed Amount of bleeding with debridement: Mild Bleeding Controlled with: Compression and gauze Patient tolerated procedure well Assessment/Plan Active Problems Ulcer of foot (Chronic) Pain in right leg (Chronic) Neuropathy (Chronic) Tobacco abuse (Chronic) Tobacco abuse counseling (Chronic) Assessment: Right foot Ulcer. Right Leg Pain. Tobacco abuse. Peripheral Arterial Disease. Plan: Debridement done as documented above, procedure was well tolerated. Good granulation tissue. Will continue with Fibrocol and Adaptic daily. Continue offloading with surgical shoe. Increased protein intake and smoking cessation recommended. The patient has been evaluated by Dr. Brown, Vascular Surgeon, whose recommendations include a CT angiogram to identify the presence of arterial occlusive disease. It is anticipated that she will follow-up with Dr. Brown following the CT angiogram. Her questions were answered and she was advised to call with any further questions or concerns. [facility]. Influenza vaccine was not administered today. The patient is a smoker, and has been advised of the hazards of smoking, and cessat ion has been recommended. Patient weighs 138 pounds. Her height is 5 feet 6 inches tall. BMI is 22.3. Weight appears to be appropriate.
== END 2018-11-22 23:59 ==
LOC: WC 11:30
PROVIDERS: Family Provider Family Medicine; PCP Family Medicine; Referring Provider Surgery; Visit Provider Surgery
DX: L97.512 Non-pressure chronic ulcer of other part of right foot with fat layer exposed (principal); J44.9 Chronic obstructive pulmonary disease, unspecified; I10 Essential (primary) hypertension; I25.10 Atherosclerotic heart disease of native coronary artery without angina pectoris; K21.9 Gastro-esophageal reflux disease without esophagitis; K58.9 Irritable bowel syndrome, unspecified; I80.3 Phlebitis and thrombophlebitis of lower extremities, unspecified; I73.9 Peripheral vascular disease, unspecified; R94.31 Abnormal electrocardiogram [ECG] [EKG]; M19.90 Unspecified osteoarthritis, unspecified site; M79.604 Pain in right leg; G62.9 Polyneuropathy, unspecified; E78.5 Hyperlipidemia, unspecified; F17.210 Nicotine dependence, cigarettes, uncomplicated
CPT/HCPCS: 11042; 93005; 93923; 93970

== ENCOUNTER → 2018-11-26 | Outpatient (CLI) | payer MEDICARE, SELFPAY ==
[2018-11-16 11:24] VITALS: BMI 22.3
[2018-11-24 09:56] VITALS: BMI 22.3
--- NOTE | 2018-11-26 13:53 | CT_ITS ---
STUDY: CTA OF THE ABDOMINAL AORTA AND BILATERAL LOWER EXTREMITIES REASON FOR EXAM: Female, 78 years old. Atherosclerosis, pt stated wound to rt foot for over one month. RADIATION DOSAGE (If Supplied By Facility): CTDIvol = ( 8.18 ) mGy, DLP = ( 1011.47 ) mGycm TECHNIQUE: Axial CT angiography multi-detector data acquisition was obtained from the lower chest to the feet following intravenous administration of IV Isovue 370 100. Axial images and MIP images were reconstructed from the axial data set. Post-processing of the angiographic images was performed, with multiplanar reformation and 3D reconstruction. Individualized dose optimization techniques were used for this CT. TECHNICAL QUALITY: Good COMPARISON: None. Descriptors of Narrowing: None (0%) Mild (< 50%) Moderate (50-70%) Severe (70-90%) Subtotal/Total Occlusion (90-100%) Non-Evaluable (technically non-diagnostic FINDINGS: Abdominal aorta: Multiple calcified plaques predominantly along the infrarenal abdominal aorta without significant stenosis. 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 Widely patent celiac artery and its branches. Inferior mesenteric artery: High-grade stenosis at its origin. Right renal artery(arteries): No demonstrated narrowing. Left renal artery(arteries): Nonocclusive calcified plaques. No significant stenosis. Right common iliac artery: Greater than 70% stenosis at its origin due to calcified plaques and noncalcified plaques. Right external iliac artery: Nonocclusive calcified plaques. Right internal iliac artery: Multi segmental 50% stenosis. Left common iliac artery: Nonocclusive calcified plaques. Left external iliac artery: Nonocclusive calcified plaques. Left internal iliac artery: Multi segmental 50% stenosis. RIGHT LOWER EXTREMITY Right common femoral artery: No demonstrated narrowing. Right profundus femoris: No demonstrated narrowing. Right superficial femoral: No demonstrated narrowing. Right popliteal artery: No demonstrated narrowing. Right tibioperoneal trunk: No demonstrated narrowing. Right anterior tibial artery: No demonstrated narrowing. Right posterior tibial artery: Occluded distal two thirds. Right peroneal artery: No demonstrated narrowing. LEFT LOWER EXTREMITY Left common femoral artery: No demonstrated narrowing. Left profundus femoris: No demonstrated narrowing. Left superficial femoral: No demonstrated narrowing. Left popliteal artery: No demonstrated narrowing. Left tibioperoneal trunk: No demonstrated narrowing. Left anterior tibial artery: Occluded distal two thirds. Left posterior tibial artery: Occluded distal half. Left peroneal artery: Occluding the distal two thirds. CT/CTA Abd w/Runoff W/WO Contrast IMPRESSION: 1. 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 2. Widely patent celiac artery and its branches. 3. Nonocclusive calcified plaques in the left proximal renal artery. Both renal arteries are widely patent. 4. High-grade stenosis at the origin of the inferior mesenteric artery. 5. Greater than 70% stenosis of the right common iliac artery origin due to calcified plaques and noncalcified plaques. 6. Widely patent left common iliac artery. 7. Widely patent bilateral external iliac arteries, bilateral common femoral arteries, bilateral profunda femoris, bilateral SFAs and bilateral popliteal arteries. 8. Occluded distal runoff of the left anterior tibial artery, left posterior tibial artery and left peroneal artery. 9. Occluded distal two thirds of the right posterior tibial artery. The remaining right distal runoff show no suspicious vaso-occlusive disease. Electronically Signed: Izaiah Dueñas MD at 10:38 EDT , Service support ,
== END | disposition home or self-care (01) ==
LOC: CT 13:51
PROVIDERS: Family Provider Family Medicine; PCP Family Medicine; Referring Provider Surgery Vascular Surgery; Visit Provider Surgery Vascular Surgery
DX: I70.235 Atherosclerosis of native arteries of right leg with ulceration of other part of foot (principal)
CPT/HCPCS: 75635; Q9967

== ENCOUNTER 2018-12-15 06:56 | Day surgery (SDC) | payer MEDICARE, SELFPAY ==
[2018-11-30 10:20] VITALS: BMI 22.3
[2018-12-08 11:22] VITALS: BMI 22.3
[2018-12-14 08:45] VITALS: BMI 27.3
[2018-12-15 07:11] LABS: Hematocrit 45.5 % (37-47); Hemoglobin 15.2 g/dL (12.0-15.0); Mean Corp Hgb Conc 33.4 g/dL (32-36); Mean Corpuscular Hgb 31.7 pg (27.0-32.0); Mean Platelet Vol. 9.3 fl (6.2-12.0); Platelet Count 296 K/mm3 (150-450); RBC Distribution Width CV 13.9 % (11.6-14.6); RBC Distribution Width SD 48.9 fl (35.1-43.9); Red Blood Count 4.79 M/mm3 (4.2-5.4); White Blood Count 12.7 K/mm3 (4.4-11.0)
[2018-12-15 07:24] LABS: Albumin, Serum 3.6 g/dL (3.2-5.0); BUN 14 mg/dL (7-18); BUN/Creat Ratio 18.7 RATIO (10-20); Calcium,Total 9.3 mg/dL (8.5-10.1); Chloride 108 mmol/L (98-107); Creatinine, Serum 0.75 mg/dL (0.55-1.02); EST Glomerular Filtration Rate 80 mL/min (>60); Est Glom Filt Rate - Afr Amer 96 mL/min (>60); Glucose 115 mg/dL (74-106); Phosphorus 3.1 mg/dL (2.5-4.9); Potassium 3.7 mmol/L (3.5-5.1); Sodium Level 140 mmol/L (136-145)
--- NOTE | 2018-12-15 11:11 | PCM.OPRPT ---
Problem List (1) Peripheral artery disease Status: Chronic Report of Operation Date of Procedure: 12/15/18 Pre-Operative Diagnosis: PAD with iliac stenosis Post-Operative Diagnosis: Same Surgery/Procedure Performed:: 1. Ultrasound-guided access retrograde right common femoral artery. 2. Aortogram with bilateral iliofemoral angiogram. 3. Balloon angioplasty of the right common iliac artery with a 6 mm balloon and then stented with a 7 x 29 Leonie and post balloon with an 8 x 4 balloon. 4. Closure with Star close Type of Anesthesia:: Sedation,Conscious Description of Procedure: Patient brought to the [facility]. Underwent the appropriate timeout consent. Underwent sedation. Was prepped and draped in a sterile fashion. We did ultrasound-guided access retrograde in the right common femoral artery. Put a Glidewire up and then a 6 [place] sheath. We got the wire to go through the area of the stenosis in the right iliac. We put a Kumpe catheter over this and did not aortogram with bilateral iliac imaging. This showed the severe stenosis in the iliac artery. We replaced a stiff Glidewire and balloon through this lesion with a 6 x 4 balloon for over 1 minute. We then brought in a longer 6 [place] sheath did not angios showed some improvement through there but still the area of the narrowing. We then brought in a 7 x 29 Leonie stent and deployed it in good position just at the area of the bifurcation. We post balloon with an 8 x 4 balloon and then did a completion angiogram that was markedly improved with brisk flow. We removed out the sheath deployed at Star closed with good hemostasis she was then brought to recovery stable condition Sedation: This 78-year-old female underwent moderate sedation given by Dr. Oracio Brown. She was moderate EKG blood pressure and pulse ox for over the 30 minutes of the procedure and postop. See the EMR for the complete record.
== END 2018-12-15 12:52 | disposition home or self-care (01) ==
LOC: CLSP 06:57
PROVIDERS: Family Provider Family Medicine; PCP Family Medicine; Referring Provider Surgery Vascular Surgery; Visit Provider Surgery Vascular Surgery
DX: I70.235 Atherosclerosis of native arteries of right leg with ulceration of other part of foot (principal); J98.9 Respiratory disorder, unspecified; E78.00 Pure hypercholesterolemia, unspecified; I10 Essential (primary) hypertension; K59.9 Functional intestinal disorder, unspecified; F41.9 Anxiety disorder, unspecified; I25.10 Atherosclerotic heart disease of native coronary artery without angina pectoris; Z79.899 Other long term (current) drug therapy; F17.210 Nicotine dependence, cigarettes, uncomplicated
CPT/HCPCS: 36245; 36415; 37221; 75710; 76937; 80069; 85027; 99152; 99153; J7040; Q9967; C1725; C1760; C1769; C1876

== ENCOUNTER 2018-12-21 10:00 | Outpatient (RCR) | payer MEDICARE, SELFPAY ==
[2018-11-23 01:06] VITALS: BP 137/71; PULSE 64; RESP 16; TEMP 36.5
[2018-11-24 09:56] VITALS: BP 123/79; PULSE 65; RESP 16; TEMP 36.2; BMI 22.3
--- NOTE | 2018-11-24 10:30 | PN.PCM_ITS ---
(1) Ulcer of right foot with fat layer exposed Status: Chronic Current Visit: Yes Code(s): L97.512 - Non-pressure chronic ulcer of other part of right foot with fat layer exposed (2) Pain in right leg Status: Chronic Current Visit: Yes Code(s): M79.604 - Pain in right leg (3) Tobacco abuse Status: Chronic Current Visit: Yes Code(s): Z72.0 - Tobacco use (4) Other specified peripheral vascular diseases Status: Chronic Current Visit: Yes Code(s): I73.89 - Other specified peripheral vascular diseases Type of Wound Date of Service: 11/24/18 Chief Complaint: Ulceration of the right lateral foot History of Wound: This is a 78-year-old female who presented with an ulceration of the right lateral foot. This has been associated with purplish discoloration on the right lateral foot and involving the right fifth digit which has been improving each week. There were also some small scattered areas of purplish discoloration involving the right leg. The patient denies a history of thrombophlebitis. She has no history of swelling in her lower extremities. She claims to be active and ambulatory. A venous duplex examination has recently been performed at [facility], which was negative for deep vein thrombosis. A noninvasive arterial study was also reportedly performed, though the results are unknown. The patient is known to be a smoker. She smokes approximately 1 pack of cigarettes per day, and has done so for many years. She also has multiple medical problems, which include cardiac arrhythmia, coronary atherosclerosis, hypertension, chronic obstructive pulmonary disease, and hyperlipidemia. Progress of Wound: Courtesy Visit for Dr. Rosas. Being managed for a right foot ulcer. Had a visit with Dr. Brown ( Vacular Surgery ) today. No new concerns at this time. - Physical Exam Vital Signs Temp Pulse Resp BP 97.1 F L 65 16 123/79 H 11/24/18 09:56 11/24/18 09:56 11/24/18 09:56 11/24/18 09:56 General: Alert, Oriented x3, Cooperative, No apparent distress HEENT: Atraumatic Extremities: No cyanosis, No edema, Capillary Refill Less than 3 Seconds, No Calf Tenderness - neg nuha and smith right, Diminished Peripheral Pulses, - - varus rotation fifth digit, right Skin: Ulcer/ Wound - Fibrous and granular base. No purulence, erythema, string, odor, infection. No deep tissue exposure noted. Peripheral skin is atrophic and hairless Wound Measurements and Assessment - Nurse 1 - General Ulcer Measurement Start: 11/24/18 09:56 Freq: Status: Active Protocol: Activity Type Activity Date Activity User E-Sign Co-Sign Detail Recorded Client Recorded Date Recorded By Document 11/24/18 09:56 [facility] [id number] 11/24/18 10:01 [facility] 11/24/18 09:56 Wound Center Nurse 1 [Ulcer Assessment] #1 R Lat Foot -Combined with other wound No -Current Size (cm) - Length 1.8 -Current Size (cm) - Width 0.9 -Current Size (cm) - Depth 0.2 -Total Square Cm 1.62 -Photo Taken No -Epithelialization None Present -Tunneling No -Undermining/Tunneling No -Circular Undermining No -Exudate Amt Small -Exudate Type Serous -Wound Margin Distinct, Outline Attached -Granulation Amt Small (1-33%) -Granulation Quality Red -Slough/Fibrin Yes -Necrosis Amt Medium (34-66%) -Necrotic Tissue Type Adherent Slough -Texture (Andie-wound Skin Appearance) Assessed, Scarring -Moisture (Andie-wound Skin Appearance Assessed ) -Color (Andie-wound Skin Appearance) Assessed, Erythema -Temperature (Andie-wound Skin No Abnormality Appearance) (Pt Warm) -Tenderness on Palpation (Andie-wound No Skin Appearance) -Ulcer Cleansing Rinsed/ Irrigated with Saline -Foul Odor after Cleansing No -Anesthetic Used 5% Lidocaine Gel - Nurse 2 - General Ulcer CM Notes Start: 11/24/18 09:56 Freq: Status: Active Protocol: Activity Type Activity Date Activity User E-Sign Co-Sign Detail Recorded Client Recorded Date Recorded By Document 11/24/18 10:14 AN [id number] 11/24/18 10:17 AN 11/24/18 10:14 Wound Center Nurse 2 [Procedure/Treatment] -Time 10:15 -Correct Patient Yes -Correct Side, Site, Position Yes -Correct Procedure Yes -Procedure Performed Yes -Type of Procedure Debridement -Clinical Debridement Subcutaneous -Post Debridement Size (cm) - Length 1.9 -Post Debridement Size (cm) - Width 1.0 -Post Debridement Size (cm) - Depth 0.2 -Total Square Cm 1.90 -Wound/Ulcer Outcome Not Healed -Bleeding Controlled with Pressure -Offloading Yes -Treatment Response Procedure Tolerated Well [See Physician Procedure note for Specifics] Pain Scale: 0-10 Numeric [Pain] -Is Patient Pain Free? Yes Musculoskeletal: No Tenderness to Palpation of Joints or Extremities, Muscle Wasting, Tenderness - With ulcer manipulation Neurological: Sensory exam intact to light touch and pain Psych/Mental Status: Normal Affect, Appropriate Debridement Note Post-Debridement Measurements/Treatment WC - Nurse 2 - General Ulcer CM Notes Start: 11/24/18 09:56 Freq: Status: Active Protocol: Activity Type Activity Date Activity User E-Sign Co-Sign Detail Recorded Client Recorded Date Recorded By Document 11/24/18 10:14 AN [id number] 11/24/18 10:17 AN 11/24/18 10:14 Wound Center Nurse 2 #1 R Lat Foot -Time 10:15 -Correct Patient Yes -Correct Side, Site, Position Yes -Correct Procedure Yes -Procedure Performed Yes -Type of Procedure Debridement -Clinical Debridement Subcutaneous -Post Debridement Size (cm) - Length 1.9 -Post Debridement Size (cm) - Width 1.0 -Post Debridement Size (cm) - Depth 0.2 -Total Square Cm 1.90 -Wound/Ulcer Outcome Not Healed -Bleeding Controlled with Pressure -Offloading Yes -Treatment Response Procedure Tolerated Well Pain Scale: 0-10 Numeric Is Patient Pain Free? Yes Wound debrided: dorsal lateral foot Laterality: Right Type of Debridement: Excisional debridement Anesthesia Used: 5% Lidocaine Gel Depth: in the subcutaneous layer Percentage of wound debrided: 100 Instrument Used: #15 blade Tissue Removed: fibrous, devitalized subcutaneous, biofilm, slough Severity: Fat Layer Exposed Amount of bleeding with debridement: Mild Bleeding Controlled with: Pressure Patient tolerated procedure well Assessment/Plan Active Problems Pain in right leg (Chronic) Tobacco abuse (Chronic) Ulcer of right foot with fat layer exposed (Chronic) Other specified peripheral vascular diseases (Chronic) Assessment: Right foot Ulcer. Right Leg Pain. Tobacco abuse. Peripheral Ar terial Disease. Plan: I reviewed and discussed her case. This is a courtesy visit for Dr. Rosas. Debridement done as documented above, procedure was well tolerated. Good granulation tissue. Will continue with Fibrocol and Adaptic daily. Continue offloading with surgical shoe. Increased protein intake and smoking cessation recommended. It is noted she takes boost supplementation. The patient has been evaluated by Dr. Brown, Vascular Surgeon, whose recommendations include a CT angiogram to identify the presence of arterial occlusive disease. It is anticipated that she will follow-up with Dr. Brown following the CT angiogram. This is scheduled for this upcoming Thursday. Her questions were answered and she was advised to call with any further questions or concerns. To continue wearing soft slipper or surgical shoe. I offered to apply a modification pad to further take pressure off her ulcer site to her surgical shoe and she deferred today. Follow [facility] with Dr. Rosas.
[2018-11-30 10:20] VITALS: BP 123/81; PULSE 73; RESP 18; TEMP 36.4; BMI 22.3
--- NOTE | 2018-11-30 11:20 | HP.PCM_ITS ---
(1) Ulcer of foot Status: Chronic Current Visit: Yes Qualifiers: Laterality: right Non-pressure ulcer stage: with fat layer exposed Qualified Code(s): L97.512 - Non-pressure chronic ulcer of other part of right foot with fat layer exposed Code(s): L97.509 - Non-pressure chronic ulcer of other part of unspecified foot with unspecified severity (2) Hypertension Status: Chronic Current Visit: No Code(s): I10 - Essential (primary) hypertension (3) COPD (chronic obstructive pulmonary disease) Status: Chronic Current Visit: No Code(s): J44.9 - Chronic obstructive pulmonary disease, unspecified (4) Coronary atherosclerosis Status: Chronic Current Visit: No Code(s): I25.10 - Atherosclerotic heart disease of [place] coronary artery without angina pectoris (5) Cardiac arrhythmia Status: Chronic Current Visit: No Code(s): I49.9 - Cardiac arrhythmia, unspecified (6) GERD (gastroesophageal reflux disease) Status: Chronic Current Visit: No Code(s): K21.9 - Gastro-esophageal reflux disease without esophagitis (7) IBS (irritable bowel syndrome) Status: Chronic Current Visit: No Code(s): K58.9 - Irritable bowel syndrome without diarrhea (8) Osteoarthritis Status: Chronic Current Visit: No Code(s): M19.90 - Unspecified osteoarthritis, unspecified site (9) Pain in right leg Status: Chronic Current Visit: Yes Code(s): M79.604 - Pain in right leg (10) Neuropathy Status: Chronic Current Visit: No Code(s): G62.9 - Polyneuropathy, unspecified (11) Tobacco abuse Status: Chronic Current Visit: Yes Code(s): Z72.0 - Tobacco use (12) Tobacco abuse counseling Status: Chronic Current Visit: Yes Code(s): Z71.6 - Tobacco abuse counseling (13) Hyperlipidemia Status: Chronic Current Visit: No Code(s): E78.5 - Hyperlipidemia, unspecified (14) Ulcer of right foot with fat layer exposed Status: Chronic Current Visit: Yes Code(s): L97.512 - Non-pressure chronic ulcer of other part of right foot with fat layer exposed (15) Other specified peripheral vascular diseases Status: Chronic Current Visit: Yes Code(s): I73.89 - Other specified peripheral vascular diseases (16) Peripheral artery disease Status: Chronic Current Visit: Yes Code(s): I73.9 - Peripheral vascular disease, unspecified History of Present Illness Date of Service: 11/30/18 Chief Complaint: Ulceration of the right lateral foot History of Wound: This is a 78-year-old female who presented with an ulceration of the right lateral foot. This has been associated with purplish discoloration on the right lateral foot and involving the right fifth digit which has been improving each week. There were also some small scattered areas of purplish discoloration involving the right leg. The patient denies a history of thrombophlebitis. She has no history of swelling in her lower extremities. She claims to be active and ambulatory. A venous duplex examination has recently been performed at [facility], which was negative for deep vein thrombosis. A noninvasive arterial study was also reportedly performed, though the results are unknown. The patient is known to be a smoker. She smokes approximately 1 pack of cigarettes per day, and has done so for many years. She also has multiple medical problems, which include cardiac arrhythmia, coronary atherosclerosis, hypertension, chronic obstructive pulmonary disease, and hyperlipidemia. Past Medical History Past Medical History: Chronic Problems Ulcer of foot (Chronic) Hypertension (Chronic) COPD (chronic obstructive pulmonary disease) (Chronic) Coronary atherosclerosis (Chronic) Cardiac arrhythmia (Chronic) GERD (gastroesophageal reflux disease) (Chronic) IBS (irritable bowel syndrome) (Chronic) Osteoarthritis (Chronic) Pain in right leg (Chronic) Neuropathy (Chronic) Tobacco abuse (Chronic) Tobacco abuse counseling (Chronic) Hyperlipidemia (Chronic) Ulcer of right foot with fat layer exposed (Chronic) Other specified peripheral vascular diseases (Chronic) Peripheral artery disease (Chronic) Surgical History: hysterectomy - With bilateral salpingo-oophorectomy Allergies/Adverse Reactions: Allergies No Known Allergies Allergy (Verified 10/19/18 11:36) - Family History Paternal - - Patient's father at the age of 62 with a history of melanoma. Patient's mother at the age of 42 with Hodgkin's disease Smoking Status: Current every day smoker Tobacco Use: Cigarettes Review of Systems Constitutional: Denies: Chills, Fever, Weight Change Eyes: Denies: Pain, Vision Change HEENT: Denies: Difficulty Hearing, Difficulty Swallowing, Sinus Congestion Cardiovascular: Denies: Chest Pain, Palpitations Respiratory: Denies: Cough, Shortness of Breath Gastrointestinal: Denies: Diarrhea, Nausea, Vomiting Genitourinary: Denies: Dysuria, Hematuria Endocrine: Denies: Heat/ Cold Intolerance, Polydipsia, Polyuria Hematologic/ Lymphatic: Denies: Easy Bruising, Easy Bleeding - Physical Exam Vital Signs Temp Pulse Resp BP 97.5 F L 73 18 123/81 H 11/30/18 10:20 11/30/18 10:20 11/30/18 10:20 11/30/18 10:20 General: Alert, Oriented x3, Cooperative, No apparent distress, Well developed, Well nourished HEENT: Atraumatic, PERRLA, EOMI, Normocephalic Oral: Moist Mucosa Neck: No JVD Lungs: Normal air movement Abdomen: Non-Distended Extremities: No clubbing, No cyanosis, No edema, No Calf Tenderness, - - The ulceration on the right lateral foot persists. Dimensions are documented elsewhere. There is no sign of infection or cellulitis. There is a moderate amount of bioburden and nonviable tissue present. Surrounding ischemic changes persist. Wound Measurements and Assessment WC - Nurse 1 - General Ulcer Measurement Start: 11/24/18 09:56 Freq: Status: Active Protocol: Activity Type Activity Date Activity User E-Sign Co-Sign Detail Recorded Client Recorded Date Recorded By Document 11/30/18 10:20 [facility] [id number] 11/30/18 10:24 [facility] 11/30/18 10:20 Wound Center Nurse 1 [Ulcer Assessment] #1 R Lat Foot -Current Size (cm) - Length 1.4 -Current Size (cm) - Width 0.8 -Current Size (cm) - Depth 0.2 -Total Square Cm 1.12 -Photo Taken No -Exudate Amt Small -Exudate Type Serosanguineous -Wound Margin Distinct, Outline Attached -Granulation Amt Large (67-100%) -Granulation Quality [place] -Necrosis Amt Medium (34-66%) -Necrotic Tissue Type Adherent Slough -Structure Exposed N/A -Texture (Andie-wound Skin Appearance) Scarring -Moisture (Andie-wound Skin Appearance Maceration ) -Color (Andie-wound Skin Appearance) Rubor -Temperature (Andie-wound Skin No Abnormality Appearance) (Pt Warm) -Tenderness on Palpation (Andie-wound No Skin Appearance) -Ulcer Cleansing Rinsed/ Irrigated with Saline -Foul Odor after Cleansing No -Anesthetic Used 5% Lidocaine Gel - Nurse 2 - General Ulcer CM Notes Start: 11/24/18 09:56 Freq: Status: Active Protocol: Activity Type Activity Date Activity User E-Sign Co-Sign Detail Recorded Client Recorded Date Recorded By Document 11/30/18 11:09 [facility] [id number] 11/30/18 11:11 11/30/18 11:09 Wound Center Nurse 2 [Procedure/Treatment] -Time 11:10 -Correct Patient Yes -Correct Side, Site, Position Yes -Correct Procedure Yes -Procedure Performed Yes -Type of Procedure Debridement -Clinical Debridement Subcutaneous -Post Debridement Size (cm) - Length 1.5 -Post Debridement Size (cm) - Width 0.8 -Post Debridement Size (cm) - Depth 0.2 -Total Square Cm 1.20 -Wound/Ulcer Outcome Not Healed -Ulcer Cleansing Rinsed/ Irrigated with Saline -Foul Odor after Cleansing No -Bioengineered Tissue No -Bleeding Controlled with Pressure -Offloading No -Treatment Response Procedure Tolerated Well [See Physician Procedure note for Specifics] Pain Scale: 0-10 Numeric [Pain] -Is Patient Pain Free? Yes Neurological: Cranial nerves II-XII grossly intact, Neuro grossly intact Psych/Mental Status: Normal Affect, Appropriate, Alert and oriented to time, place, person, mood and affect Debridement Note Post-Debridement Measurements/Treatment - Nurse 2 - General Ulcer CM Notes Start: 11/24/18 09:56 Freq: Status: Active Protocol: Activity Type Activity Date Activity User E-Sign Co-Sign Detail Recorded Client Recorded Date Recorded By Document 11/24/18 10:14 AN [id number] 11/24/18 10:17 AN Document 11/30/18 11:09 [id number] 11/30/18 11:11 11/24/18 11/30/18 10:14 11:09 Wound Center Nurse 2 #1 R Lat Foot -Time 10:15 11:10 -Correct Patient Yes Yes -Correct Side, Site, Position Yes Yes -Correct Procedure Yes Yes -Procedure Performed Yes Yes -Type of Procedure Debridement Debridement -Clinical Debridement Subcutaneous Subcutaneous -Post Debridement Size (cm) - Length 1.9 1.5 -Post Debridement Size (cm) - Width 1.0 0.8 -Post Debridement Size (cm) - Depth 0.2 0.2 -Total Square Cm 1.90 1.20 -Wound/Ulcer Outcome Not Healed Not Healed -Ulcer Cleansing Rinsed/ Irrigated with Saline -Foul Odor after Cleansing No -Bioengineered Tissue No -Bleeding Controlled with Pressure Pressure -Offloading Yes No -Treatment Response Procedure Procedure Tolerated Well Tolerated Well Pain Scale: 0-10 Numeric Is Patient Pain Free? Yes Yes Laterality: Right - Lateral foot Type of Debridement: Excisional debridement Anesthesia Used: 5% Lidocaine Gel Depth: Down to and including healthy tissue, in the subcutaneous layer Percentage of wound debrided: 100 Instrument Used: 3mm curette Tissue Removed: Bioburden and nonviable tissue Severity: Fat Layer Exposed Amount of bleeding with debridement: Mild Bleeding Controlled with: Compression and gauze Patient tolerated procedure well Assessment/Plan Active Problems Ulcer of foot (Chronic) Pain in right leg (Chronic) Tobacco abuse (Chronic) Tobacco abuse counseling (Chronic) Ulcer of right foot with fat layer exposed (Chronic) Other specified peripheral vascular diseases (Chronic) Peripheral artery disease (Chronic) Assessment: Right foot Ulcer. Right Leg Pain. Tobacco abuse. Peripheral Arterial Disease. Plan: Continue offloading with surgical shoe. Increased protein intake and smoking cessation recommended. It is noted she takes Boost supplementation. The patient has been evaluated by Dr. Brown, Vascular Surgeon, who arranged for the patient to undergo a CT angiogram to identify the presence of arterial occlusive disease. CT angiogram was performed on November 26, 2018. It reveals significant arterial occlusive disease. With respect to the right lower extremity, there is greater than 70% stenosis of the right common iliac artery, as well as occlusion of the distal two thirds of the right posterior tibial artery. Patient is scheduled for follow-up evaluation by Dr. Brown, vascular surgeon, tomorrow. We will await Dr. Brown's recommendations. We are to continue with the use of Fibracol and Adaptic applied to the right foot ulceration on a daily basis. Her questions were answered and she was advised to call with any further questions or concerns. The patient is to follow-up on an outpatient basis in 1 week. Influenza vaccine was not administered today. Patient appears to be of suitable weight. Patient is a smoker, and has been counseled in detail as to the adverse consequences of her smoking habit, and has been urged to quit.
[2018-12-08 11:22] VITALS: BP 146/70; PULSE 61; RESP 16; TEMP 36.5; BMI 22.3
--- NOTE | 2018-12-08 12:34 | PCM.WC.PN ---
(1) Ulcer of right foot with fat layer exposed Status: Chronic Current Visit: Yes Code(s): L97.512 - Non-pressure chronic ulcer of other part of right foot with fat layer exposed (2) Peripheral artery disease Status: Chronic Current Visit: Yes Code(s): I73.9 - Peripheral vascular disease, unspecified (3) Tobacco abuse Status: Chronic Current Visit: Yes Code(s): Z72.0 - Tobacco use Type of Wound Date of Service: 12/08/18 Chief Complaint: Ulceration of the right lateral foot History of Wound: This is a 78-year-old female who presented with an ulceration of the right lateral foot. This has been associated with purplish discoloration on the right lateral foot and involving the right fifth digit which has been improving each week. There were also some small scattered areas of purplish discoloration involving the right leg. The patient denies a history of thrombophlebitis. She has no history of swelling in her lower extremities. She claims to be active and ambulatory. A venous duplex examination has recently been performed at [facility], which was negative for deep vein thrombosis. A noninvasive arterial study was also reportedly performed, though the results are unknown. The patient is known to be a smoker. She smokes approximately 1 pack of cigarettes per day, and has done so for many years. She also has multiple medical problems, which include cardiac arrhythmia, coronary atherosclerosis, hypertension, chronic obstructive pulmonary disease, and hyperlipidemia. Progress of Wound: Courtesy Visit for Dr. Rosas. Being managed for a right foot ulcer. Plan is for Vascular surgery intervention on 12/15. No new concerns at this time. - Physical Exam Vital Signs Temp Pulse Resp BP 97.7 F L 61 16 146/70 H 12/08/18 11:22 12/08/18 11:22 12/08/18 11:22 12/08/18 11:22 General: Alert, Oriented x3, Cooperative, No apparent distress HEENT: Atraumatic, Normocephalic Oral: No Gingival or Mucosal Lesions/ Ulcerations Neck: Supple Extremities: No cyanosis Skin: Ulcer/ Wound Wound Measurements and Assessment WC - Nurse 1 - General Ulcer Measurement Start: 11/24/18 09:56 Freq: Status: Active Protocol: Activity Type Activity Date Activity User E-Sign Co-Sign Detail Recorded Client Recorded Date Recorded By Document 12/08/18 11:22 CS [id number] 12/08/18 11:24 CS 12/08/18 11:22 Wound Center Nurse 1 [Ulcer Assessment] #1 R Lat Foot -Combined with other wound No -Current Size (cm) - Length 1.1 -Current Size (cm) - Width 0.8 -Current Size (cm) - Depth 0.2 -Total Square Cm 0.88 -Photo Taken No -Epithelialization None Present -Tunneling No -Undermining/Tunneling No -Circular Undermining No -Exudate Amt Small -Exudate Type Serous -Wound Margin Distinct, Outline Attached -Granulation Amt Small (1-33%) -Granulation Quality [place] -Slough/Fibrin Yes -Necrosis Amt Medium (34-66%) -Necrotic Tissue Type Adherent Slough -Texture (Andie-wound Skin Appearance) Assessed, Scarring -Moisture (Andie-wound Skin Appearance Assessed ) -Color (Andie-wound Skin Appearance) Assessed -Temperature (Andie-wound Skin No Abnormality Appearance) (Pt Warm) -Tenderness on Palpation (Andie-wound No Skin Appearance) -Ulcer Cleansing Rinsed/ Irrigated with Saline -Foul Odor after Cleansing No -Anesthetic Used 5% Lidocaine Gel WC - Nurse 2 - General Ulcer CM Notes Start: 11/24/18 09:56 Freq: Status: Active Protocol: Activity Type Activity Date Activity User E-Sign Co-Sign Detail Recorded Client Recorded Date Recorded By Document 12/08/18 11:33 MW [id number] 12/08/18 11:34 MW 12/08/18 11:33 Wound Center Nurse 2 [Procedure/Treatment] -Time 11:33 -Correct Patient Yes -Correct Side, Site, Position Yes -Correct Procedure Yes -Procedure Performed Yes -Type of Procedure Debridement -Clinical Debridement Subcutaneous -Post Debridement Size (cm) - Length 1.3 -Post Debridement Size (cm) - Width 1.0 -Post Debridement Size (cm) - Depth 0.2 -Total Square Cm 1.30 -Wound/Ulcer Outcome Not Healed -Ulcer Cleansing Rinsed/ Irrigated with Saline -Foul Odor after Cleansing No -Bioengineered Tissue No -Bleeding Controlled with Pressure -Offloading No -Treatment Response Procedure Tolerated Well [See Physician Procedure note for Specifics] Pain Scale: 0-10 Numeric [Pain] -Is Patient Pain Free? Yes Neurological: Cranial nerves II-XII grossly intact Psych/Mental Status: Normal Affect Debridement Note Post-Debridement Measurements/Treatment WC - Nurse 2 - General Ulcer CM Notes Start: 11/24/18 09:56 Freq: Status: Active Protocol: Activity Type Activity Date Activity User E-Sign Co-Sign Detail Recorded Client Recorded Date Recorded By Document 11/24/18 10:14 AN [id number] 11/24/18 10:17 AN Document 11/30/18 11:09 JF [id number] 11/30/18 11:11 JF Document 12/08/18 11:33 MW [id number] 12/08/18 11:34 MW 11/24/18 11/30/18 12/08/18 10:14 11:09 11:33 Wound Center Nurse 2 #1 R Lat Foot -Time 10:15 11:10 11:33 -Correct Patient Yes Yes Yes -Correct Side, Site, Position Yes Yes Yes -Correct Procedure Yes Yes Yes -Procedure Performed Yes Yes Yes -Type of Procedure Debridement Debridement Debridement -Clinical Debridement Subcutaneous Subcutaneous Subcutaneous -Post Debridement Size (cm) - Length 1.9 1.5 1.3 -Post Debridement Size (cm) - Width 1.0 0.8 1.0 -Post Debridement Size (cm) - Depth 0.2 0.2 0.2 -Total Square Cm 1.90 1.20 1.30 -Wound/Ulcer Outcome Not Healed Not Healed Not Healed -Ulcer Cleansing Rinsed/ Rinsed/ Irrigated with Irrigated with Saline Saline -Foul Odor after Cleansing No No -Bioengineered Tissue No No -Bleeding Controlled with Pressure Pressure Pressure -Offloading Yes No No -Treatment Response Procedure Procedure Procedure Tolerated Well Tolerated Well Tolerated Well Pain Scale: 0-10 Numeric Is Patient Pain Free? Yes Yes Yes Wound debrided: Right lateral Foot Type of Debridement: Excisional debridement Anesthesia Used: 4% Lidocaine Solution Depth: Down to and including healthy tissue, in the subcutaneous layer Percentage of wound debrided: 100 Instrument Used: 3mm curette Tissue Removed: Slough and devitalized tissue Severity: Fat Layer Exposed Amount of bleeding with debridement: Mild Bleeding Controlled with: Pressure Patient tolerated procedure well Assessment/Plan Active Problems Ulcer of foot (Chronic) Pain in right leg (Chronic) Tobacco abuse (Chronic) Tobacco abuse counseling (Chronic) Ulcer of right foot with fat layer exposed (Chronic) Other specified peripheral vascular diseases (Chronic) Peripheral artery disease (Chronic) Assessment: Right foot Ulcer. Right Leg Pain. Tobacco abuse. Peripheral Arterial Disease. Plan: Debridement done as documented above, procedure was well tolerated. Continue Fibrocol with adaptic daily. Continue compression and increased protein intake. Follow up with Dr. Brown as scheduled. Her questions were answered and she was advised to call with any further questions or concerns. Follow up with Dr. Rosas on Thursday. This note was generated with [employer] dictation software. It may contain incorrect words, spelling, and punctuation that were not noted in checking the note before signing.
[2018-12-21 10:10] VITALS: BP 106/57; PULSE 78; RESP 18; TEMP 36.3; BMI 22.3
--- NOTE | 2018-12-21 10:42 | PCM.WC.HP ---
(1) Ulcer of foot Status: Chronic Current Visit: Yes Qualifiers: Laterality: right Non-pressure ulcer stage: with fat layer exposed Qualified Code(s): L97.512 - Non-pressure chronic ulcer of other part of right foot with fat layer exposed Code(s): L97.509 - Non-pressure chronic ulcer of other part of unspecified foot with unspecified severity (2) Hypertension Status: Chronic Current Visit: No Code(s): I10 - Essential (primary) hypertension (3) COPD (chronic obstructive pulmonary disease) Status: Chronic Current Visit: No Code(s): J44.9 - Chronic obstructive pulmonary disease, unspecified (4) Coronary atherosclerosis Status: Chronic Current Visit: No Code(s): I25.10 - Atherosclerotic heart disease of [place] coronary artery without angina pectoris (5) Cardiac arrhythmia Status: Chronic Current Visit: No Code(s): I49.9 - Cardiac arrhythmia, unspecified (6) GERD (gastroesophageal reflux disease) Status: Chronic Current Visit: No Code(s): K21.9 - Gastro-esophageal reflux disease without esophagitis (7) IBS (irritable bowel syndrome) Status: Chronic Current Visit: No Code(s): K58.9 - Irritable bowel syndrome without diarrhea (8) Osteoarthritis Status: Chronic Current Visit: No Code(s): M19.90 - Unspecified osteoarthritis, unspecified site (9) Pain in right leg Status: Chronic Current Visit: No Code(s): M79.604 - Pain in right leg (10) Neuropathy Status: Chronic Current Visit: No Code(s): G62.9 - Polyneuropathy, unspecified (11) Tobacco abuse Status: Chronic Current Visit: Yes Code(s): Z72.0 - Tobacco use (12) Tobacco abuse counseling Status: Chronic Current Visit: Yes Code(s): Z71.6 - Tobacco abuse counseling (13) Hyperlipidemia Status: Chronic Current Visit: No Code(s): E78.5 - Hyperlipidemia, unspecified (14) Ulcer of right foot with fat layer exposed Status: Chronic Current Visit: Yes Code(s): L97.512 - Non-pressure chronic ulcer of other part of right foot with fat layer exposed (15) Other specified peripheral vascular diseases Status: Chronic Current Visit: Yes Code(s): I73.89 - Other specified peripheral vascular diseases (16) Peripheral artery disease Status: Chronic Current Visit: Yes Code(s): I73.9 - Peripheral vascular disease, unspecified History of Present Illness Date of Service: 12/21/18 Chief Complaint: Ulceration of the right lateral foot History of Wound: This is a 78-year-old female who presented with an ulceration of the right lateral foot. This has been associated with purplish discoloration on the right lateral foot and involving the right fifth digit which has been improving each week. There were also some small scattered areas of purplish discoloration involving the right leg. The patient denies a history of thrombophlebitis. She has no history of swelling in her lower extremities. She claims to be active and ambulatory. A venous duplex examination has recently been performed at [facility], which was negative for deep vein thrombosis. A noninvasive arterial study was also reportedly performed, though the results are unknown. The patient is known to be a smoker. She smokes approximately 1 pack of cigarettes per day, and has done so for many years. She also has multiple medical problems, which include cardiac arrhythmia, coronary atherosclerosis, hypertension, chronic obstructive pulmonary disease, and hyperlipidemia. Past Medical History Past Medical History: Chronic Problems Ulcer of foot (Chronic) Hypertension (Chronic) COPD (chronic obstructive pulmonary disease) (Chronic) Coronary atherosclerosis (Chronic) Cardiac arrhythmia (Chronic) GERD (gastroesophageal reflux disease) (Chronic) IBS (irritable bowel syndrome) (Chronic) Osteoarthritis (Chronic) Pain in right leg (Chronic) Neuropathy (Chronic) Tobacco abuse (Chronic) Tobacco abuse counseling (Chronic) Hyperlipidemia (Chronic) Ulcer of right foot with fat layer exposed (Chronic) Other specified peripheral vascular diseases (Chronic) Peripheral artery disease (Chronic) Surgical History: hysterectomy - With bilateral salpingo-oophorectomy Allergies/Adverse Reactions: Allergies No Known Allergies Allergy (Verified 10/19/18 11:36) Home Medications: Ambulatory Orders Medication Instructions Recorded Amlodipine Besylate 5 mg PO DAILY 12/14/18 Calcium Carb/Vit D3/Minerals [Qc 2 ea PO DAILY 12/14/18 Calcium 600 mg-Vit D Tab] Chlordiazepoxide HCl 5 mg PO DAILY 12/14/18 Cholecalciferol (Vitamin D3) 1,000 unit PO DAILY 12/14/18 [Vitamin D3] Estradiol 0.5 mg PO DAILY 12/14/18 Metoprolol Tartrate 50 mg PO DAILY 12/14/18 Nabumetone 500 mg PO DAILY 12/14/18 Oxybutynin Chloride 5 mg PO DAILY 12/14/18 Ranitidine HCl 150 mg PO DAILY 12/14/18 Simvastatin 20 mg PO DAILY 12/14/18 - Family History Paternal - - Patient's father at the age of 62 with a history of melanoma. Patient's mother at the age of 42 with Hodgkin's disease Smoking Status: Current every day smoker Tobacco Use: Cigarettes Review of Systems Constitutional: Denies: Chills, Fever, Weight Change Eyes: Denies: Pain, Vision Change HEENT: Denies: Difficulty Hearing, Difficulty Swallowing, Sinus Congestion Cardiovascular: Denies: Chest Pain, Palpitations Respiratory: Denies: Cough, Shortness of Breath Gastrointestinal: Denies: Diarrhea, Nausea, Vomiting Genitourinary: Denies: Dysuria, Hematuria Endocrine: Denies: Heat/ Cold Intolerance, Polydipsia, Polyuria Hematologic/ Lymphatic: Denies: Easy Bruising, Easy Bleeding - Physical Exam Vital Signs Temp Pulse Resp BP 97.3 F L 78 18 106/57 L 12/21/18 10:10 12/21/18 10:10 12/21/18 10:10 12/21/18 10:10 General: Alert, Oriented x3, Cooperative, No apparent distress, Well developed, Well nourished HEENT: Atraumatic, PERRLA, EOMI, Normocephalic Oral: Moist Mucosa Neck: No JVD Lungs: Normal air movement Abdomen: Non-Distended Extremities: No clubbing, No cyanosis, No edema, No Calf Tenderness, - - The appearance of the patient's right foot is markedly improved, status post recent right lower extremity revascularization. The ischemic changes on the right lateral foot are much diminished. The ulceration on the right lateral foot persists. Dimensions are documented elsewhere. There is no sign of infection or cellulitis. There is a moderate amount of bioburden. Wound Measurements and Assessment WC - Nurse 1 - General Ulcer Measurement Start: 11/24/18 09:56 Freq: Status: Active Protocol: Activity Type Activity Date Activity User E-Sign Co-Sign Detail Recorded Client Recorded Date Recorded By Document 12/21/18 10:10 RB [id number] 12/21/18 10:12 RB 12/21/18 10:10 Wound Center Nurse 1 [Ulcer Assessment] #1 R Lat Foot -Combined with other wound No -Current Size (cm) - Length 1.1 -Current Size (cm) - Width 0.8 -Current Size (cm) - Depth 0.1 -Total Square Cm 0.88 -Tunneling No -Undermining/Tunneling No -Circular Undermining No -Exudate Amt Small -Exudate Type Serosanguineous -Wound Margin Flat & Intact -Granulation Amt Medium (34-66%) -Granulation Quality [place] -Slough/Fibrin Yes -Necrosis Amt Small (1-33%) -Necrotic Tissue Type Adherent Slough -Structure Exposed N/A -Texture (Andie-wound Skin Appearance) Assessed -Moisture (Andie-wound Skin Appearance Assessed ) -Color (Andie-wound Skin Appearance) Assessed -Temperature (Andie-wound Skin No Abnormality Appearance) (Pt Warm) -Tenderness on Palpation (Andie-wound No Skin Appearance) -Ulcer Cleansing Wound Cleanser -Foul Odor after Cleansing No -Anesthetic Used 5% Lidocaine Gel WC - Nurse 2 - General Ulcer CM Notes Start: 11/24/18 09:56 Freq: Status: Active Protocol: Activity Type Activity Date Activity User E-Sign Co-Sign Detail Recorded Client Recorded Date Recorded By Document 12/21/18 10:31 [id number] 12/21/18 10:34 12/21/18 10:31 Wound Center Nurse 2 [Procedure/Treatment] -Time 10:32 -Correct Patient Yes -Correct Side, Site, Position Yes -Correct Procedure Yes -Procedure Performed Yes -Type of Procedure Debridement -Clinical Debridement Subcutaneous -Post Debridement Size (cm) - Length 1.1 -Post Debridement Size (cm) - Width 0.8 -Post Debridement Size (cm) - Depth 0.1 -Total Square Cm 0.88 -Wound/Ulcer Outcome Not Healed -Ulcer Cleansing Not Cleansed -Foul Odor after Cleansing No -Bleeding Controlled with NA -Offloading No -Treatment Response Procedure Tolerated Well [See Physician Procedure note for Specifics] Pain Scale: 0-10 Numeric [Pain] -Is Patient Pain Free? No Neurological: Cranial nerves II-XII grossly intact, Neuro grossly intact Psych/Mental Status: Normal Affect, Appropriate, Alert and oriented to time, place, person, mood and affect Debridement Note Post-Debridement Measurements/Treatment WC - Nurse 2 - General Ulcer CM Notes Start: 11/24/18 09:56 Freq: Status: Active Protocol: Activity Type Activity Date Activity User E-Sign Co-Sign Detail Recorded Client Recorded Date Recorded By Document 11/24/18 10:14 AN [id number] 11/24/18 10:17 AN Document 11/30/18 11:09 JF [id number] 11/30/18 11:11 JF Document 12/08/18 11:33 MW [id number] 12/08/18 11:34 MW Document 12/21/18 10:31 CS [id number] 12/21/18 10:34 CS 11/24/18 11/30/18 12/08/18 10:14 11:09 11:33 Wound Center Nurse 2 #1 R [facility] Foot -Time 10:15 11:10 11:33 -Correct Patient Yes Yes Yes -Correct Side, Site, Position Yes Yes Yes -Correct Procedure Yes Yes Yes -Procedure Performed Yes Yes Yes -Type of Procedure Debridement Debridement Debridement -Clinical Debridement Subcutaneous Subcutaneous Subcutaneous -Post Debridement Size (cm) - Length 1.9 1.5 1.3 -Post Debridement Size (cm) - Width 1.0 0.8 1.0 -Post Debridement Size (cm) - Depth 0.2 0.2 0.2 -Total Square Cm 1.90 1.20 1.30 -Wound/Ulcer Outcome Not Healed Not Healed Not Healed -Ulcer Cleansing Rinsed/ Rinsed/ Irrigated with Irrigated with Saline Saline -Foul Odor after Cleansing No No -Bioengineered Tissue No No -Bleeding Controlled with Pressure Pressure Pressure -Offloading Yes No No -Treatment Response Procedure Procedure Procedure Tolerated Well Tolerated Well Tolerated Well Pain Scale: 0-10 Numeric Is Patient Pain Free? Yes Yes Yes 12/21/18 10:31 Wound Center Nurse 2 #1 R Lat Foot -Time 10:32 -Correct Patient Yes -Correct Side, Site, Position Yes -Correct Procedure Yes -Procedure Performed Yes -Type of Procedure Debridement -Clinical Debridement Subcutaneous -Post Debridement Size (cm) - Length 1.1 -Post Debridement Size (cm) - Width 0.8 -Post Debridement Size (cm) - Depth 0.1 -Total Square Cm 0.88 -Wound/Ulcer Outcome Not Healed -Ulcer Cleansing Not Cleansed -Foul Odor after Cleansing No -Bioengineered Tissue -Bleeding Controlled with NA -Offloading No -Treatment Response Procedure Tolerated Well Pain Scale: 0-10 Numeric Is Patient Pain Free? No Laterality: Right - Lateral foot ulceration Type of Debridement: Excisional debridement Anesthesia Used: 5% Lidocaine Gel Depth: Down to and including healthy tissue, in the subcutaneous layer Percentage of wound debrided: 100 Instrument Used: 5mm curette Tissue Removed: Bioburden and nonviable tissue Severity: Fat Layer Exposed Amount of bleeding with debridement: Mild Bleeding Controlled with: Compression and gauze Patient tolerated procedure well Assessment/Plan Active Problems Ulcer of foot (Chronic) Tobacco abuse (Chronic) Tobacco abuse counseling (Chronic) Ulcer of right foot with fat layer exposed (Chronic) Other specified peripheral vascular diseases (Chronic) Peripheral artery disease (Chronic) Assessment: Right foot Ulcer. Right Leg Pain. Tobacco abuse. Peripheral Arterial Disease. It is noted that the patient has undergone right lower extremity revascularization by Dr. Oracio Brown. The procedure was performed on December 15, 2018. Patient underwent balloon angioplasty of the right common iliac artery with placement of a stent. Plan: Debridement done as documented above, procedure was well tolerated. We are to implement the use of Carla applied topically on a daily basis. A small amount of collagen hydrogel will also be utilized with each dressing change. Patient has been encouraged to optimize her nutritional intake. She has been advised in very strong terms to stop her smoking habit. Patient is to return in 1 week for reassessment. This note was generated with [employer] dictation software. It may contain incorrect words, spelling, and punctuation that were not noted in checking the note before signing.
== END 2018-12-23 23:59 ==
LOC: WC 10:00
PROVIDERS: Family Provider Family Medicine; PCP Family Medicine; Referring Provider Surgery; Visit Provider Surgery
DX: L97.512 Non-pressure chronic ulcer of other part of right foot with fat layer exposed (principal); M79.604 Pain in right leg; F17.210 Nicotine dependence, cigarettes, uncomplicated; I73.89 Other specified peripheral vascular diseases; Z79.899 Other long term (current) drug therapy; I25.10 Atherosclerotic heart disease of native coronary artery without angina pectoris; I10 Essential (primary) hypertension; J44.9 Chronic obstructive pulmonary disease, unspecified; E78.5 Hyperlipidemia, unspecified; I49.9 Cardiac arrhythmia, unspecified; K21.9 Gastro-esophageal reflux disease without esophagitis; K58.9 Irritable bowel syndrome, unspecified; M19.90 Unspecified osteoarthritis, unspecified site; G62.9 Polyneuropathy, unspecified
CPT/HCPCS: 11042

== ENCOUNTER 2019-01-18 11:00 | Outpatient (RCR) | payer MEDICARE, SELFPAY ==
[2018-12-24 01:03] VITALS: BP 106/57; PULSE 78; RESP 18; TEMP 36.3
[2018-12-28 10:15] VITALS: BP 150/73; PULSE 63; RESP 18; TEMP 36.5; BMI 22.3
--- NOTE | 2018-12-28 10:37 | PCM.WC.HP ---
(1) Ulcer of foot Status: Chronic Current Visit: Yes Qualifiers: Laterality: right Non-pressure ulcer stage: with fat layer exposed Qualified Code(s): L97.512 - Non-pressure chronic ulcer of other part of right foot with fat layer exposed Code(s): L97.509 - Non-pressure chronic ulcer of other part of unspecified foot with unspecified severity (2) Hypertension Status: Chronic Current Visit: No Code(s): I10 - Essential (primary) hypertension (3) COPD (chronic obstructive pulmonary disease) Status: Chronic Current Visit: No Code(s): J44.9 - Chronic obstructive pulmonary disease, unspecified (4) Coronary atherosclerosis Status: Chronic Current Visit: No Code(s): I25.10 - Atherosclerotic heart disease of [place] coronary artery without angina pectoris (5) Cardiac arrhythmia Status: Chronic Current Visit: No Code(s): I49.9 - Cardiac arrhythmia, unspecified (6) GERD (gastroesophageal reflux disease) Status: Chronic Current Visit: No Code(s): K21.9 - Gastro-esophageal reflux disease without esophagitis (7) IBS (irritable bowel syndrome) Status: Chronic Current Visit: No Code(s): K58.9 - Irritable bowel syndrome without diarrhea (8) Osteoarthritis Status: Chronic Current Visit: No Code(s): M19.90 - Unspecified osteoarthritis, unspecified site (9) Pain in right leg Status: Chronic Current Visit: Yes Code(s): M79.604 - Pain in right leg (10) Neuropathy Status: Chronic Current Visit: No Code(s): G62.9 - Polyneuropathy, unspecified (11) Tobacco abuse Status: Chronic Current Visit: Yes Code(s): Z72.0 - Tobacco use (12) Tobacco abuse counseling Status: Chronic Current Visit: Yes Code(s): Z71.6 - Tobacco abuse counseling (13) Hyperlipidemia Status: Chronic Current Visit: No Code(s): E78.5 - Hyperlipidemia, unspecified (14) Ulcer of right foot with fat layer exposed Status: Chronic Current Visit: Yes Code(s): L97.512 - Non-pressure chronic ulcer of other part of right foot with fat layer exposed (15) Other specified peripheral vascular diseases Status: Chronic Current Visit: Yes Code(s): I73.89 - Other specified peripheral vascular diseases (16) Peripheral artery disease Status: Chronic Current Visit: Yes Code(s): I73.9 - Peripheral vascular disease, unspecified History of Present Illness Date of Service: 12/28/18 Chief Complaint: Ulceration of the right lateral foot History of Wound: This is a 78-year-old female who presented with an ulceration of the right lateral foot. This has been associated with purplish discoloration on the right lateral foot and involving the right fifth digit which has been improving each week. There were also some small scattered areas of purplish discoloration involving the right leg. The patient denies a history of thrombophlebitis. She has no history of swelling in her lower extremities. She claims to be active and ambulatory. A venous duplex examination has recently been performed at [facility], which was negative for deep vein thrombosis. A noninvasive arterial study was also reportedly performed, though the results are unknown. The patient is known to be a smoker. She smokes approximately 1 pack of cigarettes per day, and has done so for many years. She also has multiple medical problems, which include cardiac arrhythmia, coronary atherosclerosis, hypertension, chronic obstructive pulmonary disease, and hyperlipidemia. Past Medical History Past Medical History: Chronic Problems Ulcer of foot (Chronic) Hypertension (Chronic) COPD (chronic obstructive pulmonary disease) (Chronic) Coronary atherosclerosis (Chronic) Cardiac arrhythmia (Chronic) GERD (gastroesophageal reflux disease) (Chronic) IBS (irritable bowel syndrome) (Chronic) Osteoarthritis (Chronic) Pain in right leg (Chronic) Neuropathy (Chronic) Tobacco abuse (Chronic) Tobacco abuse counseling (Chronic) Hyperlipidemia (Chronic) Ulcer of right foot with fat layer exposed (Chronic) Other specified peripheral vascular diseases (Chronic) Peripheral artery disease (Chronic) Surgical History: hysterectomy - With bilateral salpingo-oophorectomy Allergies/Adverse Reactions: Allergies No Known Allergies Allergy (Verified 10/19/18 11:36) Home Medications: Ambulatory Orders Medication Instructions Recorded Amlodipine Besylate 5 mg PO DAILY 12/14/18 Calcium Carb/Vit D3/Minerals [Qc 2 ea PO DAILY 12/14/18 Calcium 600 mg-Vit D Tab] Chlordiazepoxide HCl 5 mg PO DAILY 12/14/18 Cholecalciferol (Vitamin D3) 1,000 unit PO DAILY 12/14/18 [Vitamin D3] Estradiol 0.5 mg PO DAILY 12/14/18 Metoprolol Tartrate 50 mg PO DAILY 12/14/18 Nabumetone 500 mg PO DAILY 12/14/18 Oxybutynin Chloride 5 mg PO DAILY 12/14/18 Ranitidine HCl 150 mg PO DAILY 12/14/18 Simvastatin 20 mg PO DAILY 12/14/18 Clopidogrel Bisulfate [Plavix] mg PO DAILY 12/21/18 - Family History Paternal - - Patient's father at the age of 62 with a history of melanoma. Patient's mother at the age of 42 with Hodgkin's disease Smoking Status: Current every day smoker Tobacco Use: Cigarettes Review of Systems Constitutional: Denies: Chills, Fever, Weight Change Eyes: Denies: Pain, Vision Change HEENT: Denies: Difficulty Hearing, Difficulty Swallowing, Sinus Congestion Cardiovascular: Denies: Chest Pain, Palpitations Respiratory: Denies: Cough, Shortness of Breath Gastrointestinal: Denies: Diarrhea, Nausea, Vomiting Genitourinary: Denies: Dysuria, Hematuria Endocrine: Denies: Heat/ Cold Intolerance, Polydipsia, Polyuria Hematologic/ Lymphatic: Denies: Easy Bruising, Easy Bleeding - Physical Exam Vital Signs Temp Pulse Resp BP 97.7 F L 63 18 150/73 H 12/28/18 10:15 12/28/18 10:15 12/28/18 10:15 12/28/18 10:15 General: Alert, Oriented x3, Cooperative, No apparent distress, Well developed, Well nourished HEENT: Atraumatic, PERRLA, EOMI, Normocephalic Oral: Moist Mucosa Neck: No JVD Lungs: Normal air movement Abdomen: Non-Distended Extremities: No clubbing, No cyanosis, No edema, No Calf Tenderness, - - The distal right lower extremity appears warm and well-perfused, much improved since her recent revascularization procedure. The ischemic changes in the right foot have all essentially resolved as well. The ulceration on the right lateral foot appears markedly improved. It is smaller in size. Dimensions are documented elsewhere. There is no sign of infection or cellulitis. There is a small amount of bioburden and nonviable tissue. Skin: No rashes Wound Measurements and Assessment WC - Nurse 1 - General Ulcer Measurement Start: 12/28/18 10:15 Freq: Status: Active Protocol: Activity Type Activity Date Activity User E-Sign Co-Sign Detail Recorded Client Recorded Date Recorded By Document 12/28/18 10:15 RB [id number] 12/28/18 10:18 12/28/18 10:15 Wound Center Nurse 1 [Ulcer Assessment] #1 R Lat Foot -Combined with other wound No -Current Size (cm) - Length 0.5 -Current Size (cm) - Width 0.5 -Current Size (cm) - Depth 0.2 -Total Square Cm 0.25 -Tunneling No -Undermining/Tunneling No -Circular Undermining No -Exudate Amt Small -Exudate Type Serosanguineous -Wound Margin Flat & Intact -Granulation Amt Medium (34-66%) -Granulation Quality [place] -Slough/Fibrin Yes -Necrosis Amt Medium (34-66%) -Necrotic Tissue Type Adherent Slough -Structure Exposed N/A -Texture (Andie-wound Skin Appearance) Assessed,Callus -Moisture (Andie-wound Skin Appearance Maceration ) -Color (Andie-wound Skin Appearance) Assessed -Temperature (Andie-wound Skin No Abnormality Appearance) (Pt Warm) -Tenderness on Palpation (Andie-wound No Skin Appearance) -Ulcer Cleansing Wound Cleanser -Foul Odor after Cleansing No -Anesthetic Used 5% Lidocaine Gel WC - Nurse 2 - General Ulcer CM Notes Start: 12/28/18 10:15 Freq: Status: Active Protocol: Activity Type Activity Date Activity User E-Sign Co-Sign Detail Recorded Client Recorded Date Recorded By Document 12/28/18 10:31 [id number] 12/28/18 10:32 MEREDITH 12/28/18 10:31 Wound Center Nurse 2 [Procedure/Treatment] -Time 10:32 -Correct Patient Yes -Correct Side, Site, Position Yes -Correct Procedure Yes -Procedure Performed Yes -Type of Procedure Debridement -Clinical Debridement Subcutaneous -Post Debridement Size (cm) - Length 0.4 -Post Debridement Size (cm) - Width 0.4 -Post Debridement Size (cm) - Depth 0.2 -Total Square Cm 0.16 -Wound/Ulcer Outcome Not Healed -Ulcer Cleansing Rinsed/ Irrigated with Saline -Foul Odor after Cleansing No -Bioengineered Tissue No -Bleeding Controlled with Pressure -Offloading No -Treatment Response Procedure Tolerated Well [See Physician Procedure note for Specifics] Pain Scale: 0-10 Numeric [Pain] -Is Patient Pain Free? Yes Neurological: Cranial nerves II-XII grossly intact, Neuro grossly intact Psych/Mental Status: Normal Affect, Appropriate, Alert and oriented to time, place, person, mood and affect Debridement Note Post-Debridement Measurements/Treatment WC - Nurse 2 - General Ulcer CM Notes Start: 12/28/18 10:15 Freq: Status: Active Protocol: Activity Type Activity Date Activity User E-Sign Co-Sign Detail Recorded Client Recorded Date Recorded By Document 12/28/18 10:31 MEREDITH [id number] 12/28/18 10:32 MEREDITH 12/28/18 10:31 Wound Center Nurse 2 #1 R Lat Foot -Time 10:32 -Correct Patient Yes -Correct Side, Site, Position Yes -Correct Procedure Yes -Procedure Performed Yes -Type of Procedure Debridement -Clinical Debridement Subcutaneous -Post Debridement Size (cm) - Length 0.4 -Post Debridement Size (cm) - Width 0.4 -Post Debridement Size (cm) - Depth 0.2 -Total Square Cm 0.16 -Wound/Ulcer Outcome Not Healed -Ulcer Cleansing Rinsed/ Irrigated with Saline -Foul Odor after Cleansing No -Bioengineered Tissue No -Bleeding Controlled with Pressure -Offloading No -Treatment Response Procedure Tolerated Well Pain Scale: 0-10 Numeric Is Patient Pain Free? Yes Laterality: Right - Lateral foot Type of Debridement: Excisional debridement Anesthesia Used: 5% Lidocaine Gel Depth: Down to and including healthy tissue, in the subcutaneous layer Percentage of wound debrided: 100 Instrument Used: 3mm curette Tissue Removed: Bioburden and nonviable tissue Severity: Fat Layer Exposed Amount of bleeding with debridement: Mild Bleeding Controlled with: Compression and gauze Patient tolerated procedure well Assessment/Plan Active Problems Ulcer of foot (Chronic) Pain in right leg (Chronic) Tobacco abuse (Chronic) Tobacco abuse counseling (Chronic) Ulcer of right foot with fat layer exposed (Chronic) Other specified peripheral vascular diseases (Chronic) Peripheral artery disease (Chronic) Assessment: Right foot Ulcer. Right Leg Pain. Tobacco abuse. Peripheral Arterial Disease. It is noted that the patient has undergone right lower extremity revascularization by Dr. Oracio Brown. The procedure was performed on December 15, 2018. Patient underwent balloon angioplasty of the right common iliac artery with placement of a stent. Plan: Debridement done as documented above, procedure was well tolerated. We are to continue the use of Carla applied topically on a daily basis, as well as collagen hydrogel with each dressing change. Patient has been encouraged to optimize her nutritional intake. She has been advised in very strong terms to stop her smoking habit. She continues to smoke on a daily basis, though indicates that her habit is decreasing. She has shown improvement since her recent revascularization. Patient is to return in 1 week for reassessment. This note was generated with [employer] dictation software. It may contain incorrect words, spelling, and punctuation that were not noted in checking the note before signing.
[2019-01-04 09:54] VITALS: BP 142/80; PULSE 71; RESP 16; TEMP 36.2; BMI 22.3
--- NOTE | 2019-01-04 11:18 | HP.PCM_ITS ---
(1) Ulcer of foot Status: Chronic Current Visit: Yes Qualifiers: Laterality: right Non-pressure ulcer stage: with fat layer exposed Qualified Code(s): L97.512 - Non-pressure chronic ulcer of other part of right foot with fat layer exposed Code(s): L97.509 - Non-pressure chronic ulcer of other part of unspecified foot with unspecified severity (2) Hypertension Status: Chronic Current Visit: No Code(s): I10 - Essential (primary) hypertension (3) COPD (chronic obstructive pulmonary disease) Status: Chronic Current Visit: No Code(s): J44.9 - Chronic obstructive pulmonary disease, unspecified (4) Coronary atherosclerosis Status: Chronic Current Visit: No Code(s): I25.10 - Atherosclerotic heart disease of [place] coronary artery without angina pectoris (5) Cardiac arrhythmia Status: Chronic Current Visit: No Code(s): I49.9 - Cardiac arrhythmia, unspecified (6) GERD (gastroesophageal reflux disease) Status: Chronic Current Visit: No Code(s): K21.9 - Gastro-esophageal reflux disease without esophagitis (7) IBS (irritable bowel syndrome) Status: Chronic Current Visit: No Code(s): K58.9 - Irritable bowel syndrome without diarrhea (8) Osteoarthritis Status: Chronic Current Visit: No Code(s): M19.90 - Unspecified osteoarthritis, unspecified site (9) Pain in right leg Status: Chronic Current Visit: Yes Code(s): M79.604 - Pain in right leg (10) Neuropathy Status: Chronic Current Visit: No Code(s): G62.9 - Polyneuropathy, unspecified (11) Tobacco abuse Status: Chronic Current Visit: Yes Code(s): Z72.0 - Tobacco use (12) Tobacco abuse counseling Status: Chronic Current Visit: Yes Code(s): Z71.6 - Tobacco abuse counseling (13) Hyperlipidemia Status: Chronic Current Visit: No Code(s): E78.5 - Hyperlipidemia, unspecified (14) Ulcer of right foot with fat layer exposed Status: Chronic Current Visit: Yes Code(s): L97.512 - Non-pressure chronic ulcer of other part of right foot with fat layer exposed (15) Other specified peripheral vascular diseases Status: Chronic Current Visit: Yes Code(s): I73.89 - Other specified peripheral vascular diseases (16) Peripheral artery disease Status: Chronic Current Visit: Yes Code(s): I73.9 - Peripheral vascular disease, unspecified History of Present Illness Date of Service: 01/04/19 Chief Complaint: Ulceration of the right lateral foot History of Wound: This is a 78-year-old female who presented with an ulceration of the right lateral foot. This has been associated with purplish discoloration on the right lateral foot and involving the right fifth digit which has been improving each week. There were also some small scattered areas of purplish discoloration involving the right leg. The patient denies a history of thrombophlebitis. She has no history of swelling in her lower extremities. She claims to be active and ambulatory. A venous duplex examination has recently been performed at [facility], which was negative for deep vein thrombosis. A noninvasive arterial study was also reportedly performed, though the results are unknown. The patient is known to be a smoker. She smokes approximately 1 pack of cigarettes per day, and has done so for many years. She also has multiple medical problems, which include cardiac arrhythmia, coronary atherosclerosis, hypertension, chronic obstructive pulmonary disease, and hyperlipidemia. Past Medical History Past Medical History: Chronic Problems Ulcer of foot (Chronic) Hypertension (Chronic) COPD (chronic obstructive pulmonary disease) (Chronic) Coronary atherosclerosis (Chronic) Cardiac arrhythmia (Chronic) GERD (gastroesophageal reflux disease) (Chronic) IBS (irritable bowel syndrome) (Chronic) Osteoarthritis (Chronic) Pain in right leg (Chronic) Neuropathy (Chronic) Tobacco abuse (Chronic) Tobacco abuse counseling (Chronic) Hyperlipidemia (Chronic) Ulcer of right foot with fat layer exposed (Chronic) Other specified peripheral vascular diseases (Chronic) Peripheral artery disease (Chronic) Surgical History: hysterectomy - With bilateral salpingo-oophorectomy Allergies/Adverse Reactions: Allergies No Known Allergies Allergy (Verified 10/19/18 11:36) Home Medications: Ambulatory Orders Medication Instructions Recorded Amlodipine Besylate 5 mg PO DAILY 12/14/18 Calcium Carb/Vit D3/Minerals [Qc 2 ea PO DAILY 12/14/18 Calcium 600 mg-Vit D Tab] Chlordiazepoxide HCl 5 mg PO DAILY 12/14/18 Cholecalciferol (Vitamin D3) 1,000 unit PO DAILY 12/14/18 [Vitamin D3] Estradiol 0.5 mg PO DAILY 12/14/18 Metoprolol Tartrate 50 mg PO DAILY 12/14/18 Nabumetone 500 mg PO DAILY 12/14/18 Oxybutynin Chloride 5 mg PO DAILY 12/14/18 Ranitidine HCl 150 mg PO DAILY 12/14/18 Simvastatin 20 mg PO DAILY 12/14/18 Clopidogrel Bisulfate [Plavix] mg PO DAILY 12/21/18 - Family History Paternal - - Patient's father at the age of 62 with a history of melanoma. Patient's mother at the age of 42 with Hodgkin's disease Smoking Status: Current every day smoker Tobacco Use: Cigarettes Review of Systems Constitutional: Denies: Chills, Fever, Weight Change Eyes: Denies: Pain, Vision Change HEENT: Denies: Difficulty Hearing, Difficulty Swallowing, Sinus Congestion Cardiovascular: Denies: Chest Pain, Palpitations Respiratory: Denies: Cough, Shortness of Breath Gastrointestinal: Denies: Diarrhea, Nausea, Vomiting Genitourinary: Denies: Dysuria, Hematuria Endocrine: Denies: Heat/ Cold Intolerance, Polydipsia, Polyuria Hematologic/ Lymphatic: Denies: Easy Bruising, Easy Bleeding - Physical Exam Vital Signs Temp Pulse Resp BP 97.1 F L 71 16 142/80 H 01/04/19 09:54 01/04/19 09:54 01/04/19 09:54 01/04/19 09:54 General: Alert, Oriented x3, Cooperative, No apparent distress, Well developed, Well nourished HEENT: Atraumatic, PERRLA, EOMI, Normocephalic Oral: Moist Mucosa Neck: No JVD Lungs: Normal air movement Abdomen: Non-Distended Extremities: No clubbing, No cyanosis, No edema, No Calf Tenderness, - - The ulceration on the right lateral foot now appears to be essentially healed. It appears to be fully epithelialized. There is no sign of infection or cellulitis. The ischemic changes in the right foot, noted at the patient's initial presentation, are now completely resolved. Skin: No rashes, No breakdown Wound Measurements and Assessment WC - Nurse 1 - General Ulcer Measurement Start: 12/28/18 10:15 Freq: Status: Active Protocol: Activity Type Activity Date Activity User E-Sign Co-Sign Detail Recorded Client Recorded Date Recorded By Document 01/04/19 09:54 [facility] [id number] 01/04/19 09:58 [facility] 01/04/19 09:54 Wound Center Nurse 1 [Ulcer Assessment] #1 R Lat Foot -Combined with other wound No -Current Size (cm) - Length 1.3 -Current Size (cm) - Width 0.6 -Current Size (cm) - Depth 0.1 -Total Square Cm 0.78 -Photo Taken No -Tunneling No -Undermining/Tunneling No -Circular Undermining No -Exudate Amt Small -Exudate Type Serous -Wound Margin Distinct, Outline Attached -Granulation Amt None Present (0 %) -Slough/Fibrin Yes -Necrosis Amt Large (67-100%) -Necrotic Tissue Type Adherent Slough -Texture (Andie-wound Skin Appearance) Assessed -Moisture (Andie-wound Skin Appearance Assessed, ) Maceration -Color (Andie-wound Skin Appearance) Assessed, Erythema,Palor -Temperature (Andie-wound Skin No Abnormality Appearance) (Pt Warm) -Tenderness on Palpation (Andie-wound No Skin Appearance) -Ulcer Cleansing Rinsed/ Irrigated with Saline -Foul Odor after Cleansing No -Anesthetic Used 5% Lidocaine Gel WC - Nurse 2 - General Ulcer CM Notes Start: 12/28/18 10:15 Freq: Status: Active Protocol: Activity Type Activity Date Activity User E-Sign Co-Sign Detail Recorded Client Recorded Date Recorded By Document 01/04/19 11:06 [id number] 01/04/19 11:11 01/04/19 11:06 Wound Center Nurse 2 [Procedure/Treatment] -Time 11:06 -Correct Patient Yes -Correct Side, Site, Position Yes -Correct Procedure Yes -Procedure Performed Yes -Type of Procedure Debridement -Clinical Debridement Subcutaneous -Post Debridement Size (cm) - Length 0.1 -Post Debridement Size (cm) - Width 0.1 -Post Debridement Size (cm) - Depth 0.1 -Total Square Cm 0.01 -Foul Odor after Cleansing No -Bioengineered Tissue No -Bleeding Controlled with Pressure -Type of Offloading Surgical Shoe [See Physician Procedure note for Specifics] Pain Scale: 0-10 Numeric [Pain] -Is Patient Pain Free? Yes Musculoskeletal: No Muscle Wasting Neurological: Cranial nerves II-XII grossly intact, Neuro grossly intact Psych/Mental Status: Normal Affect, Appropriate, Alert and oriented to time, place, person, mood and affect Debridement Note Post-Debridement Measurements/Treatment WC - Nurse 2 - General Ulcer CM Notes Start: 12/28/18 10:15 Freq: Status: Active Protocol: Activity Type Activity Date Activity User E-Sign Co-Sign Detail Recorded Client Recorded Date Recorded By Document 12/28/18 10:31 MEREDITH [id number] 12/28/18 10:32 Document 01/04/19 11:06 [id number] 01/04/19 11:11 12/28/18 01/04/19 10:31 11:06 Wound Center Nurse 2 #1 R Lat Foot -Time 10:32 11:06 -Correct Patient Yes Yes -Correct Side, Site, Position Yes Yes -Correct Procedure Yes Yes -Procedure Performed Yes Yes -Type of Procedure Debridement Debridement -Clinical Debridement Subcutaneous Subcutaneous -Post Debridement Size (cm) - Length 0.4 0.1 -Post Debridement Size (cm) - Width 0.4 0.1 -Post Debridement Size (cm) - Depth 0.2 0.1 -Total Square Cm 0.16 0.01 -Wound/Ulcer Outcome Not Healed -Ulcer Cleansing Rinsed/ Irrigated with Saline -Foul Odor after Cleansing No No -Bioengineered Tissue No No -Bleeding Controlled with Pressure Pressure -Offloading No -Type of Offloading Surgical Shoe -Treatment Response Procedure Tolerated Well Pain Scale: 0-10 Numeric Is Patient Pain Free? Yes Yes No debridement was completed today - The patient's ulceration is completely epithelialized and healed Assessment/Plan Active Problems Ulcer of foot (Chronic) Pain in right leg (Chronic) Tobacco abuse (Chronic) Tobacco abuse counseling (Chronic) Ulcer of right foot with fat layer exposed (Chronic) Other specified peripheral vascular diseases (Chronic) Peripheral artery disease (Chronic) Assessment: Right foot Ulcer. Right Leg Pain. Tobacco abuse. Peripheral Arterial Disease. The patient's right foot ulceration appears to be completely healed and epithelialized. Furthermore, she claims to have stopped her smoking habit. It has been several days since her last cigarette. It is noted that the patient has undergone right lower extremity revascularization by Dr. Oracio Brown. The procedure was performed on December 15, 2018. Patient underwent balloon angioplasty of the right common iliac artery with placement of a stent. Plan: We are to use collagen hydrogel topically to the healed ulceration on the right lateral foot. This will be applied topically on a daily basis. Patient is to return in 1 week for reassessment. Patient has been encouraged to optimize her nutritional intake. She has been encouraged to continue avoiding her smoking habit. She has shown significant improvement since her recent revascularization, and now appears completely healed. The patient is to return in 2 weeks for reassessment, which is likely to be her final appointment. Influenza vaccine was not administered today. The patient has stopped her smoking habit, and has been encouraged to continue avoiding tobacco use. The patient appears to be of relatively normal weight. This note was generated with [employer] dictation software. It may contain incorrect words, spelling, and punctuation that were not noted in checking the note before signing.
[2019-01-18 11:10] VITALS: BP 137/74; PULSE 65; RESP 18; TEMP 36.2; BMI 22.3
== END 2019-01-22 23:59 ==
LOC: WC 11:00
PROVIDERS: Family Provider Family Medicine; PCP Family Medicine; Referring Provider Surgery; Visit Provider Surgery
DX: I73.89 Other specified peripheral vascular diseases (principal); L97.512 Non-pressure chronic ulcer of other part of right foot with fat layer exposed; I10 Essential (primary) hypertension; J44.9 Chronic obstructive pulmonary disease, unspecified; I25.10 Atherosclerotic heart disease of native coronary artery without angina pectoris; K21.9 Gastro-esophageal reflux disease without esophagitis; K58.9 Irritable bowel syndrome, unspecified; M19.90 Unspecified osteoarthritis, unspecified site; G62.9 Polyneuropathy, unspecified; M79.604 Pain in right leg; E78.5 Hyperlipidemia, unspecified; F17.210 Nicotine dependence, cigarettes, uncomplicated; Z79.899 Other long term (current) drug therapy
CPT/HCPCS: 11042; 99212; G0463

== ENCOUNTER → 2019-08-19 08:59 | Outpatient (CLI) | payer MEDICARE, SELFPAY ==
--- NOTE | 2019-08-19 09:04 | AAVD_ITS ---
Reason For Study: Atherosclerosis, S/P R MOMO stent Aorta Measurements Aorta Doppler Measurements Proximal aorta measures2.05 x 2.15cm. in cross- Peak systolic flow velocities within the proximal sectional axis. aorta measure 33.7 cm/sec. Proximal aorta measures1.99cm. in longitudinal Peak systolic flow velocities within the mid aorta axis. measure 40.6 cm/sec. Mid aorta measures1.65 x 1.69cm. in cross- Peak systolic flow velocities within the distal sectional axis. aorta measure 70.3 cm/sec. Mid aorta measures1.64cm. in longitudinal axis. Distal aorta measures1.02 x 1.01cm. in cross- sectional axis. Distal aorta measures1.01cm. in longitudinal axis. Left Iliac Artery Left iliac artery measures .48 x .54 cm. in the cross-sectional axis. Left iliac artery measures .58 cm. in the longitudinal axis. Peak systolic velocity in the left iliac artery measures 124.2 cm/sec. Right Iliac Artery Right iliac artery measures .55 x .6 cm. in the cross-sectional axis. Right iliac artery measures .53 cm. in the longitudinal axis. Peak systolic velocity in the right iliac artery measures 116.2 cm/sec. Procedure Aorta IVC Iliac vasculature or bypass grafts [id number]. The exam was diagnostic. Exam performed in department. Interpretation Summary No aortoiliac aneurysm or stenosis. Ordering Physician: Oracio Brown Performed By: Senthil Ocampo, RVT
--- NOTE | 2019-08-19 09:05 | ART_ITS ---
Reason For Study: atherosclerosis with ulceration Procedure A bilateral lower extremity continuous wave Doppler with analog waveform analysis and ankle brachial indexes. Left Segmental Pressures Left brachial= 152mmHg. Left posterior tibial artery = 153mmHg. Left dorsalis pedis artery = 154mmHg. Left digit = 121 mmHg. The left dorsalis pedis waveforms are triphasic. The left posterior tibial artery waveforms are triphasic. Right Segmental Pressures Right brachial= 154mmHg. Right posterior tibial artery = 153mmHg. Right dorsalis pedis artery = 161mmHg. Right digit = 134 mmHg. The right dorsalis pedis waveforms are triphasic. The right posterior tibial artery waveforms are triphasic. Indices The right ankle brachial index by the dorsalis pedis is 1.05. The right ankle brachial index by the posterior tibial artery is .99. The right digital-brachial index is .87. The left ankle brachial index by the posterior tibial artery is .99. The left ankle brachial index by the dorsalis pedis is 1.0. The left digital-brachial index is .79. Interpretation Summary Bilateral normal at rest with triphasic flow and A[place] 1.05 and 1.0. Ordering Physician: Oracio Brown Performed By: CRYSTAL ORTIZ [facility]
== END ==
PROVIDERS: PCP Family Medicine; Referring Provider Surgery Vascular Surgery; Visit Provider Surgery Vascular Surgery
DX: I70.235 Atherosclerosis of native arteries of right leg with ulceration of other part of foot (principal); Z48.812 Encounter for surgical aftercare following surgery on the circulatory system
CPT/HCPCS: 93922; 93978